=== PATIENT | male | born 1970 | race Caucasian/White ===

== ENCOUNTER 2016-09-13 11:10 | Inpatient (IN) | payer MEDICARE, MEDICAID ==
[~2016-09-13] VITALS: Ht 170.2 cm; Wt 59.2 kg
[~2016-09-13 11:10] MED LIST: BENZ1TAB10 PO; CLOZ100T PO; DIVA250T4 PO; FLUD25I IM; LITH300C3 PO; METO-323 PO; QUET25TA PO; TIOT185 IH
[2016-09-13] MEDS ORDERED: ZOLPIDEM TARTRATE 10 MG TABLET PO PRN (11:30)
[2016-09-13 11:52] VITALS: BP 109/79
[2016-09-13] MEDS ORDERED: INFLUENZA VIRUS VACCINE QVS 2016-17 (3YR+)/PF 60 MCG/0.5 ML SYRINGE IM ONE (12:30)
[2016-09-13 13:39] VITALS: BP 101/66
[2016-09-13 16:30] VITALS: BP 112/71
[2016-09-13] MEDS: BENZTROPINE MESYLATE 1 MG TABLET PO SCH (17:53)
[2016-09-13] MEDS: METOPROLOL SUCCINATE 25 MG ER TABLET PO SCH (17:53)
[2016-09-13] MEDS: QUEtiapine FUMARATE 25 MG TABLET PO SCH (17:53)
[2016-09-13] MEDS: DIVALPROEX SODIUM 500 MG ER TABLET PO SCH (21:14)
[2016-09-13] MEDS: LITHIUM CARBONATE 300 MG CAPSULE PO SCH (21:14)
[2016-09-14 02:19] VITALS: BP 115/64
[2016-09-14] MEDS: LEVOTHYROXINE SODIUM 25 MCG TABLET PO SCH (06:23)
[2016-09-14 08:33] LABS: BASOPHILS % (AUTO) 0.3 % (0.0-2.0); EOSINOPHILS % (AUTO) 0 % (1.0-6.0); HEMATOCRIT 47.3 % (41-53); HEMOGLOBIN 15.3 g/dL (13.5-17.5); LYMPHOCYTES # (AUTO) 1.5 K/uL (1.0-4.8); LYMPHOCYTES % (AUTO) 10.7 % (22.0-44.0); MEAN CORPUSCULAR HEMOGLOBIN 27.2 pg (26.0-34.0); MEAN CORPUSCULAR HGB CONC 32.3 G/dL (31.0-37.0); MEAN CORPUSCULAR VOLUME 84 fL (80-100); MONOCYTES # (AUTO) 0.8 K/uL (0.1-1.0); MONOCYTES % (AUTO) 6.1 % (2.0-9.0); NEUTROPHILS # (AUTO) 11.3 K/uL (1.8-7.7); NEUTROPHILS % (AUTO) 82.9 % (40.0-70.0); PLATELET COUNT (AUTO) 213 K/uL (150-450); RED BLOOD CELL COUNT(AUTO) 5.62 MIL/uL (4.50-5.90); RED CELL DISTRIBUTION WIDTH 14.1 % (11.5-14.5); WHITE BLOOD COUNT (AUTO) 13.7 K/uL (4.5-11.0)
[2016-09-14 08:49] VITALS: BP 104/65
[2016-09-14] MEDS: QUEtiapine FUMARATE 25 MG TABLET PO SCH ×3 (08:55→16:40)
[2016-09-14] MEDS: METOPROLOL SUCCINATE 25 MG ER TABLET PO SCH ×2 (08:55→16:40)
[2016-09-14] MEDS: BENZTROPINE MESYLATE 1 MG TABLET PO SCH ×2 (08:55→16:40)
[2016-09-14] MEDS: LORazepam 2 MG TABLET PO PRN (13:30)
[2016-09-14 16:00] VITALS: BP 120/64
[2016-09-14] MEDS: LITHIUM CARBONATE 300 MG CAPSULE PO SCH (20:17)
[2016-09-14] MEDS: CloZAPine 100 MG TABLET PO SCH (20:17)
[2016-09-14] MEDS: DIVALPROEX SODIUM 500 MG ER TABLET PO SCH (20:18)
[2016-09-15] MEDS: LEVOTHYROXINE SODIUM 25 MCG TABLET PO SCH (06:14)
[2016-09-15 06:29] VITALS: BP 123/73
[2016-09-15 08:47] VITALS: BP 120/82
[2016-09-15] MEDS: LORazepam 2 MG TABLET PO PRN ×3 (08:59→18:24)
[2016-09-15] MEDS: QUEtiapine FUMARATE 25 MG TABLET PO SCH ×3 (08:59→16:16)
[2016-09-15] MEDS: BENZTROPINE MESYLATE 1 MG TABLET PO SCH ×2 (08:59→16:16)
[2016-09-15] MEDS: METOPROLOL SUCCINATE 25 MG ER TABLET PO SCH ×2 (09:00→16:16)
[2016-09-15 09:36] LABS: BASOPHILS % (AUTO) 0.2 % (0.0-2.0); EOSINOPHILS % (AUTO) 0 % (1.0-6.0); HEMATOCRIT 45.1 % (41-53); HEMOGLOBIN 14.6 g/dL (13.5-17.5); LYMPHOCYTES % (AUTO) 9.9 % (22.0-44.0); MEAN CORPUSCULAR HEMOGLOBIN 27.2 pg (26.0-34.0); MEAN CORPUSCULAR HGB CONC 32.4 G/dL (31.0-37.0); MEAN CORPUSCULAR VOLUME 84 fL (80-100); MONOCYTES # (AUTO) 0.5 K/uL (0.1-1.0); MONOCYTES % (AUTO) 4.9 % (2.0-9.0); NEUTROPHILS # (AUTO) 8.5 K/uL (1.8-7.7); PLATELET COUNT (AUTO) 154 K/uL (150-450); RED BLOOD CELL COUNT(AUTO) 5.37 MIL/uL (4.50-5.90); RED CELL DISTRIBUTION WIDTH 14.3 % (11.5-14.5)
[2016-09-15 10:55] LABS: HEMOGLOBIN A1C 5.6 % (4.5-6.2)
[2016-09-15 11:06] LABS: ALANINE AMINOTRANSFERASE 16 U/L (12-78); ALBUMIN 3.1 g/dL (3.4-5.0); ANION GAP 8 mmol/L (8-16); ASPARTATE AMINOTRANSFERASE 13 U/L (15-37); BILIRUBIN,TOTAL 0.4 mg/dL (0.1-1.0); CALCIUM, TOTAL 9.1 mg/dL (8.8-10.5); CARBON DIOXIDE 31 mmol/L (22-29); CHLORIDE 102 mmol/L (98-107); CHOL/HDL RATIO 2.6 (4.2-7.3); CREATINE KINASE, TOTAL 70 U/L (39-308); CREATININE 0.78 mg/dL (0.60-1.30); GLOMERULAR FILTR. RATE CALC > 60 mL/min (>60); SODIUM SERUM 141 mmol/L (136-145); TOTAL PROTEIN, SERUM 6.7 g/dL (6.4-8.2); UREA NITROGEN, BLOOD 13 mg/dL (7-18)
[2016-09-15 11:30] LABS: THYROID STIMULATING HORMONE 2.52 uIU/mL (0.36-3.74)
[2016-09-15 17:56] VITALS: BP 114/72
[2016-09-15] MEDS: CloZAPine 100 MG TABLET PO SCH (20:24)
[2016-09-15] MEDS: LITHIUM CARBONATE 300 MG CAPSULE PO SCH (20:25)
[2016-09-15] MEDS: DIVALPROEX SODIUM 500 MG ER TABLET PO SCH (20:25)
[2016-09-16 01:40] VITALS: BP 133/73
[2016-09-16] MEDS: LORazepam 2 MG TABLET PO PRN (01:52)
[2016-09-16] MEDS: LEVOTHYROXINE SODIUM 25 MCG TABLET PO SCH (05:53)
[2016-09-16] MEDS: METOPROLOL SUCCINATE 25 MG ER TABLET PO SCH ×2 (09:00→16:19)
[2016-09-16] MEDS: QUEtiapine FUMARATE 25 MG TABLET PO SCH ×3 (09:17→16:18)
[2016-09-16] MEDS: BENZTROPINE MESYLATE 1 MG TABLET PO SCH ×2 (09:17→16:18)
[2016-09-16] MEDS: DIVALPROEX SODIUM 500 MG ER TABLET PO SCH (20:29)
[2016-09-16] MEDS: LITHIUM CARBONATE 300 MG CAPSULE PO SCH (20:29)
[2016-09-16] MEDS: CloZAPine 100 MG TABLET PO SCH (20:29)
[2016-09-17 04:13] LABS: HEPATITIS Bs ANTIGEN SCREEN P Negative (Negative); HEPATITIS C AB SCREEN <0.1 s/co ratio (0.0-0.9)
[2016-09-17] MEDS: LEVOTHYROXINE SODIUM 25 MCG TABLET PO SCH (06:56)
[2016-09-17 08:19] VITALS: BP 135/75
[2016-09-17 08:19] LABS: EOSINOPHILS % (AUTO) 0 % (1.0-6.0); HEMATOCRIT 46.3 % (41-53); HEMOGLOBIN 14.9 g/dL (13.5-17.5); LYMPHOCYTES # (AUTO) 0.8 K/uL (1.0-4.8); LYMPHOCYTES % (AUTO) 4.4 % (22.0-44.0); MEAN CORPUSCULAR HEMOGLOBIN 27.1 pg (26.0-34.0); MEAN CORPUSCULAR HGB CONC 32.2 G/dL (31.0-37.0); MEAN CORPUSCULAR VOLUME 84 fL (80-100); MONOCYTES # (AUTO) 1.5 K/uL (0.1-1.0); MONOCYTES % (AUTO) 7.8 % (2.0-9.0); NEUTROPHILS # (AUTO) 16.4 K/uL (1.8-7.7); PLATELET COUNT (AUTO) 167 K/uL (150-450); RED BLOOD CELL COUNT(AUTO) 5.51 MIL/uL (4.50-5.90); RED CELL DISTRIBUTION WIDTH 14.3 % (11.5-14.5); WHITE BLOOD COUNT (AUTO) 18.7 K/uL (4.5-11.0)
[2016-09-17 08:20] LABS: NEUTROPHILS % (AUTO) 87.8 % (40.0-70.0)
[2016-09-17] MEDS: QUEtiapine FUMARATE 25 MG TABLET PO SCH ×3 (08:39→16:59)
[2016-09-17] MEDS: BENZTROPINE MESYLATE 1 MG TABLET PO SCH ×2 (08:39→16:59)
[2016-09-17] MEDS: METOPROLOL SUCCINATE 25 MG ER TABLET PO SCH ×2 (08:39→16:59)
[2016-09-17 08:50] LABS: ALANINE AMINOTRANSFERASE 16 U/L (12-78); ALBUMIN 3.5 g/dL (3.4-5.0); ANION GAP 8 mmol/L (8-16); ASPARTATE AMINOTRANSFERASE 7 U/L (15-37); BILIRUBIN,TOTAL 0.4 mg/dL (0.1-1.0); CALCIUM, TOTAL 8.9 mg/dL (8.8-10.5); CARBON DIOXIDE 30 mmol/L (22-29); CHLORIDE 105 mmol/L (98-107); CREATINE KINASE, TOTAL 47 U/L (39-308); CREATININE 0.71 mg/dL (0.60-1.30); GLOMERULAR FILTR. RATE CALC > 60 mL/min (>60); POTASSIUM 4.6 mmol/L (3.5-5.1); SODIUM SERUM 143 mmol/L (136-145); TOTAL PROTEIN, SERUM 6.7 g/dL (6.4-8.2); UREA NITROGEN, BLOOD 13 mg/dL (7-18)
[2016-09-17] MEDS: LACTULOSE 20 GM/30 ML SOLUTION UDCUP PO SCH (09:26)
[2016-09-17 12:04] LABS: CLOZAPINE None Detected ng/mL (350-650); NORCLOZAPINE None Detected (Not Estab.)
[2016-09-17 16:54] VITALS: BP 119/78
[2016-09-17] MEDS: DIVALPROEX SODIUM 500 MG ER TABLET PO SCH (20:29)
[2016-09-17] MEDS: LITHIUM CARBONATE 300 MG CAPSULE PO SCH (20:30)
[2016-09-17] MEDS: CloZAPine 100 MG TABLET PO SCH (20:30)
[2016-09-18] MEDS: LEVOTHYROXINE SODIUM 25 MCG TABLET PO SCH (06:36)
[2016-09-18 07:10] VITALS: BP 124/81
[2016-09-18 08:47] VITALS: BP 112/65
[2016-09-18] MEDS: LACTULOSE 20 GM/30 ML SOLUTION UDCUP PO SCH (09:21)
[2016-09-18] MEDS: BENZTROPINE MESYLATE 1 MG TABLET PO SCH ×2 (09:22→17:23)
[2016-09-18] MEDS: METOPROLOL SUCCINATE 25 MG ER TABLET PO SCH ×2 (09:22→17:30)
[2016-09-18] MEDS: QUEtiapine FUMARATE 25 MG TABLET PO SCH ×3 (09:22→17:23)
[2016-09-18 16:29] VITALS: BP 106/73
[2016-09-18 17:30] VITALS: BP 124/80
[2016-09-18] MEDS: CloZAPine 100 MG TABLET PO SCH (20:14)
[2016-09-18] MEDS: LITHIUM CARBONATE 300 MG CAPSULE PO SCH (20:15)
[2016-09-18] MEDS: DIVALPROEX SODIUM 500 MG ER TABLET PO SCH (20:15)
[2016-09-19] MEDS: LEVOTHYROXINE SODIUM 25 MCG TABLET PO SCH (06:35)
[2016-09-19 08:27] LABS: BASOPHILS % (AUTO) 0.1 % (0.0-2.0); EOSINOPHILS % (AUTO) 0 % (1.0-6.0); HEMATOCRIT 48.7 % (41-53); HEMOGLOBIN 15.8 g/dL (13.5-17.5); LYMPHOCYTES # (AUTO) 0.9 K/uL (1.0-4.8); LYMPHOCYTES % (AUTO) 5.5 % (22.0-44.0); MEAN CORPUSCULAR HGB CONC 32.6 G/dL (31.0-37.0); MEAN CORPUSCULAR VOLUME 83 fL (80-100); MONOCYTES # (AUTO) 1.8 K/uL (0.1-1.0); MONOCYTES % (AUTO) 10.7 % (2.0-9.0); NEUTROPHILS # (AUTO) 14.4 K/uL (1.8-7.7); NEUTROPHILS % (AUTO) 83.7 % (40.0-70.0); PLATELET COUNT (AUTO) 139 K/uL (150-450); RED BLOOD CELL COUNT(AUTO) 5.86 MIL/uL (4.50-5.90); RED CELL DISTRIBUTION WIDTH 13.9 % (11.5-14.5); WHITE BLOOD COUNT (AUTO) 17.2 K/uL (4.5-11.0)
[2016-09-19 08:42] LABS: CREATINE KINASE, TOTAL 40 U/L (39-308); VALPROIC ACID 69 mcg/mL (50-100)
[2016-09-19] MEDS: QUEtiapine FUMARATE 25 MG TABLET PO SCH ×3 (08:50→16:29)
[2016-09-19] MEDS: METOPROLOL SUCCINATE 25 MG ER TABLET PO SCH ×2 (08:50→16:29)
[2016-09-19] MEDS: LACTULOSE 20 GM/30 ML SOLUTION UDCUP PO SCH (08:50)
[2016-09-19] MEDS: BENZTROPINE MESYLATE 1 MG TABLET PO SCH ×2 (08:50→16:29)
[2016-09-19 16:10] VITALS: BP 126/78
[2016-09-19] MEDS: CloZAPine 100 MG TABLET PO SCH (20:36)
[2016-09-19] MEDS: DIVALPROEX SODIUM 500 MG ER TABLET PO SCH (20:37)
[2016-09-19] MEDS: LITHIUM CARBONATE 300 MG CAPSULE PO SCH (20:37)
[2016-09-20] VITALS: BP 126/96
[2016-09-20] MEDS: LEVOTHYROXINE SODIUM 25 MCG TABLET PO SCH (07:09)
[2016-09-20 08:08] VITALS: BP 137/82
[2016-09-20] MEDS ORDERED: LEVO25TA9 PO (08:11)
[2016-09-20] MEDS ORDERED: DIVA500T52 PO (08:11)
[2016-09-20] MEDS: METOPROLOL SUCCINATE 25 MG ER TABLET PO SCH (08:53)
[2016-09-20] MEDS: BENZTROPINE MESYLATE 1 MG TABLET PO SCH (08:53)
[2016-09-20] MEDS: QUEtiapine FUMARATE 25 MG TABLET PO SCH (08:54)
[2016-09-20] MEDS: LACTULOSE 20 GM/30 ML SOLUTION UDCUP PO SCH (08:54)
[2016-09-27] MEDS ORDERED: FluPHENAZine DECANOATE 25 MG/ML IM SCH (09:00)
== END 2016-09-20 10:00 | disposition home or self-care (01) | DRG 885 ==
LOC: B2S 11:20 → EDSTATUS 11:39 → B2S 13:13
PROC: 3E0234Z Introduction of Serum, Toxoid and Vaccine into Muscle, Percutaneous Approach (ICD-10-PCS; principal; 2016-09-14)
DX: F25.0 Schizoaffective disorder, bipolar type (principal); G93.40 Encephalopathy, unspecified; E83.42 Hypomagnesemia; E55.9 Vitamin D deficiency, unspecified; E03.9 Hypothyroidism, unspecified; I10 Essential (primary) hypertension; D69.6 Thrombocytopenia, unspecified; J44.9 Chronic obstructive pulmonary disease, unspecified; D72.829 Elevated white blood cell count, unspecified; K72.90 Hepatic failure, unspecified without coma; Z88.8 Allergy status to other drugs, medicaments and biological substances; Z23 Encounter for immunization; Z79.899 Other long term (current) drug therapy; Z91.5 Personal history of self-harm
CPT/HCPCS: 80074; 80159; 82306; 82607; 82746; 83036; 83735; 84439; 84443; 86592; 90471

== ENCOUNTER 2016-10-22 16:10 | Inpatient (IN) | payer MEDICARE, MEDICAID ==
[~2016-10-22] VITALS: Ht 170.2 cm; Wt 56.2 kg
[~2016-10-22 16:10] MED LIST changes: -DIVA250T4 PO; +DIVA500T52 PO; -FLUD25I IM; +LEVO25TA9 PO; -TIOT185 IH
[2016-10-22] MEDS ORDERED: LORazepam 2 MG TABLET PO PRN (16:45)
[2016-10-22] MEDS: QUEtiapine FUMARATE 25 MG TABLET PO SCH (18:09)
[2016-10-22] MEDS: METOPROLOL SUCCINATE 25 MG ER TABLET PO SCH (18:09)
[2016-10-22 18:32] VITALS: BP 121/75
[2016-10-22] MEDS: DIVALPROEX SODIUM 500 MG ER TABLET PO SCH (20:37)
[2016-10-22] MEDS: LITHIUM CARBONATE 300 MG CAPSULE PO SCH (20:37)
[2016-10-22] MEDS: BENZTROPINE MESYLATE 1 MG TABLET PO SCH (20:37)
[2016-10-22] MEDS ORDERED: CloZAPine 100 MG TABLET PO SCH ×2 (21:00)
[2016-10-23 00:39] VITALS: BP 107/68
[2016-10-23] MEDS: ZOLPIDEM TARTRATE 10 MG TABLET PO PRN (00:47)
[2016-10-23 08:44] LABS: BASOPHILS % (AUTO) 0.2 % (0.0-2.0); EOSINOPHILS % (AUTO) 0 % (1.0-6.0); HEMOGLOBIN 12.1 g/dL (13.5-17.5); LYMPHOCYTES # (AUTO) 0.4 K/uL (1.0-4.8); LYMPHOCYTES % (AUTO) 14.7 % (22.0-44.0); MEAN CORPUSCULAR HEMOGLOBIN 26.5 pg (26.0-34.0); MEAN CORPUSCULAR VOLUME 83 fL (80-100); MONOCYTES # (AUTO) 0.4 K/uL (0.1-1.0); MONOCYTES % (AUTO) 15.8 % (2.0-9.0); NEUTROPHILS % (AUTO) 69.3 % (40.0-70.0); RED BLOOD CELL COUNT(AUTO) 4.59 MIL/uL (4.50-5.90); RED CELL DISTRIBUTION WIDTH 18.9 % (11.5-14.5); WHITE BLOOD COUNT (AUTO) 2.8 K/uL (4.5-11.0)
[2016-10-23 08:57] LABS: HEMOGLOBIN A1C 5.8 % (4.5-6.2)
[2016-10-23 09:00] VITALS: BP 94/59
[2016-10-23] MEDS: METOPROLOL SUCCINATE 25 MG ER TABLET PO SCH ×2 (09:00→17:00)
[2016-10-23] MEDS: QUEtiapine FUMARATE 25 MG TABLET PO SCH ×4 (09:08→17:05)
[2016-10-23] MEDS: BENZTROPINE MESYLATE 1 MG TABLET PO SCH ×2 (09:09→20:54)
[2016-10-23 09:27] LABS: ALANINE AMINOTRANSFERASE 229 U/L (12-78); ALBUMIN 1.7 g/dL (3.4-5.0); ANION GAP 2 mmol/L (8-16); ASPARTATE AMINOTRANSFERASE 104 U/L (15-37); CALCIUM, TOTAL 8.1 mg/dL (8.8-10.5); CARBON DIOXIDE 31 mmol/L (22-29); CHLORIDE 105 mmol/L (98-107); CREATININE 0.85 mg/dL (0.60-1.30); GLOMERULAR FILTR. RATE CALC > 60 mL/min (>60); SODIUM SERUM 138 mmol/L (136-145); THYROID STIMULATING HORMONE 10.99 uIU/mL (0.36-3.74); TOTAL PROTEIN, SERUM 6.6 g/dL (6.4-8.2); UREA NITROGEN, BLOOD 15 mg/dL (7-18)
[2016-10-23 09:46] LABS: PLATELET COUNT (AUTO) 50 K/uL (150-450)
[2016-10-23 09:47] LABS: RBC MORPHOLOGY COMMENT NORMAL RBC MORPH
[2016-10-23] MEDS: LEVOTHYROXINE SODIUM 25 MCG TABLET PO SCH (14:50)
[2016-10-23 16:02] VITALS: BP 106/66
[2016-10-23] MEDS: LITHIUM CARBONATE 300 MG CAPSULE PO SCH (20:53)
[2016-10-23] MEDS: DIVALPROEX SODIUM 500 MG ER TABLET PO SCH (20:54)
[2016-10-23] MEDS: CloZAPine 100 MG TABLET PO SCH (21:08)
[2016-10-24 00:15] VITALS: BP 110/67
[2016-10-24] MEDS: ZOLPIDEM TARTRATE 10 MG TABLET PO PRN (00:16)
[2016-10-24] MEDS: LEVOTHYROXINE SODIUM 25 MCG TABLET PO SCH (06:43)
[2016-10-24 08:18] LABS: BASOPHILS # (AUTO) 0.01 K/uL (0.00-0.20); BASOPHILS % (AUTO) 0.2 % (0.0-2.0); EOSINOPHILS % (AUTO) 0.03 % (1.0-6.0); HEMATOCRIT 39.8 % (41-53); HEMOGLOBIN 12.7 g/dL (13.5-17.5); LYMPHOCYTES # (AUTO) 0.4 K/uL (1.0-4.8); LYMPHOCYTES % (AUTO) 11.7 % (22.0-44.0); MEAN CORPUSCULAR HEMOGLOBIN 26.7 pg (26.0-34.0); MEAN CORPUSCULAR VOLUME 84 fL (80-100); MONOCYTES # (AUTO) 0.4 K/uL (0.1-1.0); NEUTROPHILS # (AUTO) 2.3 K/uL (1.8-7.7); NEUTROPHILS % (AUTO) 75.1 % (40.0-70.0); PLATELET COUNT (AUTO) 44 K/uL (150-450); RED BLOOD CELL COUNT(AUTO) 4.76 MIL/uL (4.50-5.90); RED CELL DISTRIBUTION WIDTH 19.7 % (11.5-14.5); WHITE BLOOD COUNT (AUTO) 3.1 K/uL (4.5-11.0)
[2016-10-24 08:26] VITALS: BP 102/68
[2016-10-24] MEDS: METOPROLOL SUCCINATE 25 MG ER TABLET PO SCH ×2 (09:00→17:00)
[2016-10-24] MEDS: QUEtiapine FUMARATE 25 MG TABLET PO SCH ×3 (09:34→17:06)
[2016-10-24] MEDS: BENZTROPINE MESYLATE 1 MG TABLET PO SCH ×2 (09:34→20:38)
[2016-10-24 10:24] LABS: RBC MORPHOLOGY COMMENT ABNORMAL RBC MORPH
[2016-10-24 16:23] VITALS: BP 104/67
[2016-10-24] MEDS: LITHIUM CARBONATE 300 MG CAPSULE PO SCH (20:38)
[2016-10-24] MEDS: DIVALPROEX SODIUM 500 MG ER TABLET PO SCH (20:38)
[2016-10-24] MEDS: CloZAPine 100 MG TABLET PO SCH (20:38)
[2016-10-25] MEDS: LEVOTHYROXINE SODIUM 25 MCG TABLET PO SCH (06:11)
[2016-10-25 06:40] VITALS: BP 104/60
[2016-10-25 08:16] VITALS: BP 101/62
[2016-10-25] MEDS: METOPROLOL SUCCINATE 25 MG ER TABLET PO SCH ×2 (09:00→16:46)
[2016-10-25] MEDS: BENZTROPINE MESYLATE 1 MG TABLET PO SCH ×2 (09:11→20:18)
[2016-10-25] MEDS: QUEtiapine FUMARATE 25 MG TABLET PO SCH ×3 (09:11→16:45)
[2016-10-25 16:01] VITALS: BP 102/62
[2016-10-25 19:35] VITALS: BP 119/56
[2016-10-25] MEDS: CloZAPine 100 MG TABLET PO SCH (20:18)
[2016-10-25] MEDS: DIVALPROEX SODIUM 500 MG ER TABLET PO SCH (20:18)
[2016-10-25] MEDS: LITHIUM CARBONATE 300 MG CAPSULE PO SCH (20:23)
[2016-10-26] MEDS: LEVOTHYROXINE SODIUM 25 MCG TABLET PO SCH (06:17)
[2016-10-26] MEDS: METOPROLOL SUCCINATE 25 MG ER TABLET PO SCH ×2 (08:01→17:00)
[2016-10-26] MEDS: QUEtiapine FUMARATE 25 MG TABLET PO SCH ×3 (08:02→17:43)
[2016-10-26] MEDS: BENZTROPINE MESYLATE 1 MG TABLET PO SCH ×2 (08:03→20:25)
[2016-10-26 08:19] VITALS: BP 103/63
[2016-10-26] MEDS ORDERED: IOVERSOL 320 MG/ML 100 ML VIAL ONE (14:15)
[2016-10-26] MEDS ORDERED: SODIUM CHLORIDE 0.9% 100 ML ONE (14:15)
[2016-10-26] MEDS ORDERED: BARIUM SULFATE 0.1% SUSPENSION 450 ML BOTTLE ONE (14:16)
[2016-10-26 15:40] LABS: ALANINE AMINOTRANSFERASE 127 U/L (12-78); ALBUMIN 1.7 g/dL (3.4-5.0); ANION GAP 3 mmol/L (8-16); ASPARTATE AMINOTRANSFERASE 79 U/L (15-37); BILIRUBIN,TOTAL 7.6 mg/dL (0.1-1.0); CALCIUM, TOTAL 7.8 mg/dL (8.8-10.5); CARBON DIOXIDE 30 mmol/L (22-29); CHLORIDE 105 mmol/L (98-107); CREATININE 0.68 mg/dL (0.60-1.30); GLOMERULAR FILTR. RATE CALC > 60 mL/min (>60); POTASSIUM 4.5 mmol/L (3.5-5.1); SODIUM SERUM 138 mmol/L (136-145); TOTAL PROTEIN, SERUM 6.9 g/dL (6.4-8.2); UREA NITROGEN, BLOOD 13 mg/dL (7-18)
[2016-10-26 17:26] VITALS: BP 109/69
[2016-10-26] MEDS: DIVALPROEX SODIUM 500 MG ER TABLET PO SCH (20:25)
[2016-10-26] MEDS: CloZAPine 100 MG TABLET PO SCH (20:25)
[2016-10-26] MEDS: LITHIUM CARBONATE 300 MG CAPSULE PO SCH (20:26)
[2016-10-27 02:09] LABS: ADD UA MICROSCOPIC NO; APPEARANCE,URINE CLEAR (CLEAR); GLUCOSE, URINE (UA) NEGATIVE (NEGATIVE); KETONES,URINE NEGATIVE (NEGATIVE); LEUKOCYTE ESTERASE ,URINE NEGATIVE (NEGATIVE); OCCULT BLOOD,URINE NEGATIVE (NEGATIVE); PROTEIN,URINE NEGATIVE (NEGATIVE)
[2016-10-27] MEDS: LEVOTHYROXINE SODIUM 25 MCG TABLET PO SCH (06:40)
[2016-10-27 08:20] VITALS: BP 113/73
[2016-10-27] MEDS: QUEtiapine FUMARATE 25 MG TABLET PO SCH ×3 (08:37→16:46)
[2016-10-27] MEDS: BENZTROPINE MESYLATE 1 MG TABLET PO SCH ×2 (08:37→21:36)
[2016-10-27] MEDS: METOPROLOL SUCCINATE 25 MG ER TABLET PO SCH ×2 (08:38→16:46)
[2016-10-27 13:02] LABS: ALANINE AMINOTRANSFERASE 110 U/L (12-78); ALBUMIN 1.9 g/dL (3.4-5.0); ANION GAP 3 mmol/L (8-16); ASPARTATE AMINOTRANSFERASE 83 U/L (15-37); BILIRUBIN,TOTAL 7.4 mg/dL (0.1-1.0); CALCIUM, TOTAL 8.2 mg/dL (8.8-10.5); CARBON DIOXIDE 31 mmol/L (22-29); CHLORIDE 103 mmol/L (98-107); CREATININE 0.96 mg/dL (0.60-1.30); GLOMERULAR FILTR. RATE CALC > 60 mL/min (>60); POTASSIUM 4.8 mmol/L (3.5-5.1); SODIUM SERUM 137 mmol/L (136-145); TOTAL PROTEIN, SERUM 7.1 g/dL (6.4-8.2); UREA NITROGEN, BLOOD 14 mg/dL (7-18)
[2016-10-27 17:00] VITALS: BP 126/75
[2016-10-27] MEDS: CloZAPine 100 MG TABLET PO SCH (21:35)
[2016-10-27] MEDS: LITHIUM CARBONATE 300 MG CAPSULE PO SCH (21:36)
[2016-10-27] MEDS: DIVALPROEX SODIUM 500 MG ER TABLET PO SCH (21:38)
[2016-10-28] MEDS: LEVOTHYROXINE SODIUM 25 MCG TABLET PO SCH (06:39)
[2016-10-28 08:00] VITALS: BP 103/65
[2016-10-28] MEDS: QUEtiapine FUMARATE 25 MG TABLET PO SCH ×3 (08:34→17:04)
[2016-10-28] MEDS: BENZTROPINE MESYLATE 1 MG TABLET PO SCH ×2 (08:34→21:52)
[2016-10-28] MEDS: METOPROLOL SUCCINATE 25 MG ER TABLET PO SCH ×2 (08:35→17:04)
[2016-10-28 16:46] VITALS: BP 109/70
[2016-10-28 21:01] LABS: LITHIUM 0.43 mmol/L (0.60-1.20)
[2016-10-28] MEDS: LITHIUM CARBONATE 300 MG CAPSULE PO SCH (21:52)
[2016-10-28] MEDS: CloZAPine 100 MG TABLET PO SCH (21:52)
[2016-10-28] MEDS: DIVALPROEX SODIUM 500 MG ER TABLET PO SCH (21:53)
[2016-10-29] MEDS: LEVOTHYROXINE SODIUM 25 MCG TABLET PO SCH (07:02)
[2016-10-29 08:00] VITALS: BP 100/67
[2016-10-29 08:19] LABS: HEPATITIS Bs ANTIGEN SCREEN P Negative (Negative); HEPATITIS C AB SCREEN <0.1 s/co ratio (0.0-0.9)
[2016-10-29] MEDS: QUEtiapine FUMARATE 25 MG TABLET PO SCH ×3 (10:00→16:31)
[2016-10-29] MEDS: METOPROLOL SUCCINATE 25 MG ER TABLET PO SCH ×2 (10:00→16:31)
[2016-10-29] MEDS: BENZTROPINE MESYLATE 1 MG TABLET PO SCH ×2 (10:00→20:04)
[2016-10-29 16:23] VITALS: BP 121/75
[2016-10-29] MEDS: CloZAPine 100 MG TABLET PO SCH (20:04)
[2016-10-29] MEDS: DIVALPROEX SODIUM 500 MG ER TABLET PO SCH (20:04)
[2016-10-29] MEDS: LITHIUM CARBONATE 300 MG CAPSULE PO SCH (20:04)
[2016-10-30] MEDS: LEVOTHYROXINE SODIUM 25 MCG TABLET PO SCH (06:40)
[2016-10-30] MEDS: QUEtiapine FUMARATE 25 MG TABLET PO SCH ×3 (08:07→16:19)
[2016-10-30] MEDS: BENZTROPINE MESYLATE 1 MG TABLET PO SCH ×2 (08:07→20:04)
[2016-10-30] MEDS: METOPROLOL SUCCINATE 25 MG ER TABLET PO SCH ×2 (08:08→16:19)
[2016-10-30 09:25] VITALS: BP 110/76
[2016-10-30 17:00] VITALS: BP 107/79
[2016-10-30 17:51] LABS: ALANINE AMINOTRANSFERASE 93 U/L (12-78); ANION GAP 4 mmol/L (8-16); ASPARTATE AMINOTRANSFERASE 101 U/L (15-37); CALCIUM, TOTAL 8.3 mg/dL (8.8-10.5); CARBON DIOXIDE 30 mmol/L (22-29); CHLORIDE 105 mmol/L (98-107); CREATININE 0.83 mg/dL (0.60-1.30); GLOMERULAR FILTR. RATE CALC > 60 mL/min (>60); POTASSIUM 4.5 mmol/L (3.5-5.1); SODIUM SERUM 139 mmol/L (136-145); TOTAL PROTEIN, SERUM 7.5 g/dL (6.4-8.2); UREA NITROGEN, BLOOD 19 mg/dL (7-18)
[2016-10-30] MEDS: DIVALPROEX SODIUM 500 MG ER TABLET PO SCH (20:04)
[2016-10-30] MEDS: LITHIUM CARBONATE 300 MG CAPSULE PO SCH (20:04)
[2016-10-30] MEDS: CloZAPine 100 MG TABLET PO SCH (20:04)
[2016-10-31] MEDS: LEVOTHYROXINE SODIUM 25 MCG TABLET PO SCH (07:06)
[2016-10-31] MEDS: METOPROLOL SUCCINATE 25 MG ER TABLET PO SCH ×2 (08:44→17:37)
[2016-10-31] MEDS: QUEtiapine FUMARATE 25 MG TABLET PO SCH ×3 (08:44→16:48)
[2016-10-31] MEDS: BENZTROPINE MESYLATE 1 MG TABLET PO SCH ×2 (08:44→20:38)
[2016-10-31 09:28] VITALS: BP 107/79
[2016-10-31 17:19] VITALS: BP_SYST 104; BP_SYST 109; BP_DIAS 73
[2016-10-31] MEDS: CloZAPine 100 MG TABLET PO SCH (20:37)
[2016-10-31] MEDS: DIVALPROEX SODIUM 500 MG ER TABLET PO SCH (20:37)
[2016-10-31] MEDS: LITHIUM CARBONATE 300 MG CAPSULE PO SCH (20:38)
[2016-11-01] MEDS: LEVOTHYROXINE SODIUM 25 MCG TABLET PO SCH (06:51)
[2016-11-01 07:07] LABS: HEMATOCRIT 32.3 % (41-53); HEMOGLOBIN 10.4 g/dL (13.5-17.5); MEAN CORPUSCULAR HEMOGLOBIN 27.5 pg (26.0-34.0); MEAN CORPUSCULAR HGB CONC 32.1 G/dL (31.0-37.0); MEAN CORPUSCULAR VOLUME 86 fL (80-100); RED BLOOD CELL COUNT(AUTO) 3.77 MIL/uL (4.50-5.90); RED CELL DISTRIBUTION WIDTH 27.4 % (11.5-14.5); WHITE BLOOD COUNT (AUTO) 3.3 K/uL (4.5-11.0)
[2016-11-01] MEDS: BENZTROPINE MESYLATE 1 MG TABLET PO SCH ×2 (08:39→20:55)
[2016-11-01] MEDS: METOPROLOL SUCCINATE 25 MG ER TABLET PO SCH ×2 (08:39→17:00)
[2016-11-01] MEDS: QUEtiapine FUMARATE 25 MG TABLET PO SCH ×3 (08:41→16:33)
[2016-11-01 08:57] LABS: PLATELET COUNT (AUTO) 56 K/uL (150-450)
[2016-11-01 08:58] LABS: RBC MORPHOLOGY COMMENT ABNORMAL RBC MORPH
[2016-11-01 09:00] VITALS: BP 112/61
[2016-11-01 09:04] LABS: BAND NEUTROPHILS % (MANUAL) 3 % (1-5); LYMPHOCYTES % (MANUAL) 32 % (22-44); TOTAL CELLS COUNTED 100
[2016-11-01 17:00] VITALS: BP 101/64
[2016-11-01] MEDS: CloZAPine 100 MG TABLET PO SCH (20:53)
[2016-11-01] MEDS: LITHIUM CARBONATE 300 MG CAPSULE PO SCH (20:54)
[2016-11-01] MEDS: DIVALPROEX SODIUM 500 MG ER TABLET PO SCH (20:54)
[2016-11-02 06:20] VITALS: BP 105/77
[2016-11-02] MEDS: LEVOTHYROXINE SODIUM 25 MCG TABLET PO SCH (06:37)
[2016-11-02] MEDS: QUEtiapine FUMARATE 25 MG TABLET PO SCH ×3 (08:31→16:38)
[2016-11-02] MEDS: BENZTROPINE MESYLATE 1 MG TABLET PO SCH ×2 (08:31→20:09)
[2016-11-02] MEDS: METOPROLOL SUCCINATE 25 MG ER TABLET PO SCH ×2 (08:31→16:38)
[2016-11-02 16:36] VITALS: BP 111/76
[2016-11-02] MEDS: CloZAPine 100 MG TABLET PO SCH (20:09)
[2016-11-02] MEDS: LITHIUM CARBONATE 300 MG CAPSULE PO SCH (20:09)
[2016-11-02] MEDS: DIVALPROEX SODIUM 500 MG ER TABLET PO SCH (20:09)
[2016-11-03] MEDS: LEVOTHYROXINE SODIUM 25 MCG TABLET PO SCH (06:42)
[2016-11-03 06:43] VITALS: BP 116/75
[2016-11-03 08:30] VITALS: BP 92/60
[2016-11-03] MEDS: METOPROLOL SUCCINATE 25 MG ER TABLET PO SCH ×2 (09:00→16:10)
[2016-11-03] MEDS: BENZTROPINE MESYLATE 1 MG TABLET PO SCH ×2 (09:51→20:05)
[2016-11-03] MEDS: QUEtiapine FUMARATE 25 MG TABLET PO SCH ×4 (09:52→16:10)
[2016-11-03 16:08] VITALS: BP 110/76
[2016-11-03] MEDS: LITHIUM CARBONATE 300 MG CAPSULE PO SCH (20:05)
[2016-11-03] MEDS: CloZAPine 100 MG TABLET PO SCH (20:05)
[2016-11-03] MEDS: DIVALPROEX SODIUM 500 MG ER TABLET PO SCH (20:05)
[2016-11-04 01:35] VITALS: BP 106/73
[2016-11-04] MEDS: LEVOTHYROXINE SODIUM 25 MCG TABLET PO SCH (06:11)
[2016-11-04] MEDS: QUEtiapine FUMARATE 25 MG TABLET PO SCH (09:05)
[2016-11-04] MEDS: BENZTROPINE MESYLATE 1 MG TABLET PO SCH (09:05)
[2016-11-04] MEDS: METOPROLOL SUCCINATE 25 MG ER TABLET PO SCH (09:06)
[2016-11-04 09:44] VITALS: BP 112/51
== END 2016-11-04 14:40 | disposition home or self-care (01) | DRG 885 ==
LOC: B2X 16:38 → 3EX 10-25 19:35
DX: F25.0 Schizoaffective disorder, bipolar type (principal); R45.851 Suicidal ideations; E46 Unspecified protein-calorie malnutrition; B15.9 Hepatitis A without hepatic coma; Z68.1 Body mass index [BMI] 19.9 or less, adult; J44.9 Chronic obstructive pulmonary disease, unspecified; F12.90 Cannabis use, unspecified, uncomplicated; D64.9 Anemia, unspecified; R45.87 Impulsiveness; I10 Essential (primary) hypertension; Z91.5 Personal history of self-harm; Z88.8 Allergy status to other drugs, medicaments and biological substances; Z87.891 Personal history of nicotine dependence; Z79.899 Other long term (current) drug therapy; Z91.14 Patient's other noncompliance with medication regimen
CPT/HCPCS: 74177; 76700; 80074; 80307; 83036; 84439; 84443; 86708; 87350; J7050

== ENCOUNTER 2017-01-28 10:39 | Inpatient (IN) | payer MEDICARE, MEDICAID ==
[~2017-01-28] VITALS: Ht 170.2 cm; Wt 56.8 kg
[2017-01-28 11:50] VITALS: BP 110/73
[2017-01-28 13:09] VITALS: BP 107/69
[2017-01-28] MEDS: QUEtiapine FUMARATE 25 MG TABLET PO SCH ×2 (13:22→16:20)
[2017-01-28] MEDS ORDERED: -PHARMACY VACCINE NOTE- MISC ONE ×2 (13:45)
[2017-01-28] MEDS: METOPROLOL SUCCINATE 25 MG ER TABLET PO SCH (16:20)
[2017-01-28 16:21] VITALS: BP 115/86
[2017-01-28 19:05] VITALS: BP 138/88
[2017-01-28] MEDS ORDERED: MAG HYDROX/AL HYDROX/SIMETH ES 30 ML SUSPENSION UDCUP PO PRN (19:15)
[2017-01-28] MEDS ORDERED: ONDANSETRON HCL 4 MG TABLET PO PRN (19:15)
[2017-01-28] MEDS ORDERED: ALBUTEROL SULFATE HFA 90 MCG/PUFF 8 GM INHALER IH PRN (19:15)
[2017-01-28] MEDS ORDERED: IBUPROFEN 600 MG TABLET PO PRN (19:15)
[2017-01-28] MEDS ORDERED: BENZOCAINE/MENTHOL LOZENGE MM PRN (19:15)
[2017-01-28] MEDS ORDERED: BACITRACIN 28.4 GM OINTMENT TP PRN (19:15)
[2017-01-28] MEDS ORDERED: ACETAMINOPHEN 325 MG TABLET PO PRN (19:15)
[2017-01-28] MEDS ORDERED: PETROLATUM,WHITE 71 GM JELLY TP PRN (19:15)
[2017-01-28] MEDS ORDERED: CloNIDine HCL 0.1 MG TABLET PO PRN (19:15)
[2017-01-28] MEDS ORDERED: LOPERAMIDE HCL 2 MG CAPSULE PO PRN (19:15)
[2017-01-28] MEDS ORDERED: MAGNESIUM HYDROXIDE SUSPENSION 30 ML UDCUP PO PRN (19:15)
[2017-01-28 19:20] VITALS: BP 128/96
[2017-01-28] MEDS ORDERED: CloZAPine 100 MG TABLET PO SCH (21:00)
[2017-01-28] MEDS ORDERED: LITHIUM CARBONATE 300 MG CAPSULE PO SCH (21:00)
[2017-01-28] MEDS ORDERED: DIVALPROEX SODIUM 500 MG ER TABLET PO SCH (21:00)
[2017-01-28] MEDS: BENZTROPINE MESYLATE 1 MG TABLET PO SCH (21:00)
[2017-01-29] MEDS ORDERED: LEVOTHYROXINE SODIUM 25 MCG TABLET PO SCH (06:30)
[2017-01-29] MEDS ORDERED: OMEPRAZOLE 20 MG CAPSULE PO SCH (09:00)
[2017-01-29] MEDS: QUEtiapine FUMARATE 25 MG TABLET PO SCH ×2 (09:00→13:00)
[2017-01-29] MEDS ORDERED: DOCUSATE SODIUM 100 MG CAPSULE PO SCH (09:00)
[2017-01-29] MEDS: METOPROLOL SUCCINATE 25 MG ER TABLET PO SCH (09:00)
[2017-01-29] MEDS: BENZTROPINE MESYLATE 1 MG TABLET PO SCH (09:00)
[2017-01-29] MEDS ORDERED: CloZAPine 100 MG TABLET PO SCH (21:00)
[2017-01-30] MEDS ORDERED: CHOLECALCIFEROL (VIT D3) 1,000 UNITS TABLET PO SCH (09:00)
== END 2017-01-29 15:00 | disposition short-term general hospital (02) | DRG 885 ==
LOC: B2X 10:58
PROVIDERS: ADMIT Psychiatry & Neurology Child & Adolescent Psychiatry
DX: F25.0 Schizoaffective disorder, bipolar type (principal); J96.91 Respiratory failure, unspecified with hypoxia; B15.9 Hepatitis A without hepatic coma; I10 Essential (primary) hypertension; F17.200 Nicotine dependence, unspecified, uncomplicated; J44.9 Chronic obstructive pulmonary disease, unspecified; D64.9 Anemia, unspecified; E03.9 Hypothyroidism, unspecified; E55.9 Vitamin D deficiency, unspecified; Z79.2 Long term (current) use of antibiotics; Z88.8 Allergy status to other drugs, medicaments and biological substances; Z91.5 Personal history of self-harm; Z79.899 Other long term (current) drug therapy
CPT/HCPCS: 87081

== ENCOUNTER 2017-02-19 21:01 | Inpatient (IN) | payer MEDICARE, OTHER ==
[~2017-02-19] VITALS: Ht 182.9 cm; Wt 58.4 kg
[2017-02-19 21:35] LABS: BASOPHILS # (AUTO) 0.02 K/uL (0.00-0.20); BASOPHILS % (AUTO) 0.2 % (0.0-2.0); EOSINOPHILS # (AUTO) 0.03 K/uL (0.00-0.70); EOSINOPHILS % (AUTO) 0.31 % (1.0-6.0); HEMOGLOBIN 15.3 g/dL (13.5-17.5); LYMPHOCYTES # (AUTO) 1.7 K/uL (1.0-4.8); LYMPHOCYTES % (AUTO) 19.2 % (22.0-44.0); MEAN CORPUSCULAR HEMOGLOBIN 29.2 pg (26.0-34.0); MEAN CORPUSCULAR HGB CONC 34.1 G/dL (31.0-37.0); MEAN CORPUSCULAR VOLUME 86 fL (80-100); MONOCYTES # (AUTO) 0.8 K/uL (0.1-1.0); MONOCYTES % (AUTO) 8.6 % (2.0-9.0); NEUTROPHILS # (AUTO) 6.3 K/uL (1.8-7.7); NEUTROPHILS % (AUTO) 71.8 % (40.0-70.0); PLATELET COUNT (AUTO) 194 K/uL (150-450); RED BLOOD CELL COUNT(AUTO) 5.25 MIL/uL (4.50-5.90); RED CELL DISTRIBUTION WIDTH 14.5 % (11.5-14.5); WHITE BLOOD COUNT (AUTO) 8.7 K/uL (4.5-11.0)
[2017-02-19 21:45] LABS: ANION GAP 6 mmol/L (8-16); CALCIUM, TOTAL 9.3 mg/dL (8.8-10.5); CARBON DIOXIDE 31 mmol/L (22-29); CHLORIDE 105 mmol/L (98-107); CREATININE 0.96 mg/dL (0.60-1.30); GLOMERULAR FILTR. RATE CALC > 60 mL/min (>60); POTASSIUM 4.1 mmol/L (3.5-5.1); SODIUM SERUM 142 mmol/L (136-145); UREA NITROGEN, BLOOD 13 mg/dL (7-18)
[2017-02-19 21:52] LABS: ALANINE AMINOTRANSFERASE 39 U/L (12-78); ALBUMIN 3.7 g/dL (3.4-5.0); ASPARTATE AMINOTRANSFERASE 28 U/L (15-37); BILIRUBIN,TOTAL 0.5 mg/dL (0.1-1.0); TOTAL PROTEIN, SERUM 7.4 g/dL (6.4-8.2)
[2017-02-19] MEDS ORDERED: ALBUTEROL SULFATE 5 MG/ML 20 ML NEB SOLN [BULK] NEB ONE (22:30)
[2017-02-19] MEDS ORDERED: DEXAMETHASONE SOD PHOS 4 MG/ML 5 ML VIAL IM ONE (22:30)
[2017-02-19] MEDS ORDERED: IPRATROPIUM BROMIDE 0.5 MG/2.5 ML NEB SOLUTION NEB ONE (22:30)
[2017-02-19] MEDS ORDERED: 0.9% SODIUM CHLORIDE 5 ML NEB SOLUTION NEB ONE (22:38)
[2017-02-19] MEDS ORDERED: BISACODYL 10 MG RECTAL RECTAL SUPPOSITORY PR PRN (23:15)
[2017-02-19] MEDS ORDERED: ACETAMINOPHEN 325 MG TABLET PO PRN (23:15)
[2017-02-19] MEDS ORDERED: MAGNESIUM HYDROXIDE SUSPENSION 30 ML UDCUP PO PRN (23:15)
[2017-02-19 23:52] LABS: ABG A-A DIFF O2 27.2 mmHg (10-20.0); ABG BASE EXCESS 6.6 mmol/L (-2.0-3.0); ABG OXYHEMOGLOBIN 86.6 % (94.0-100.0); ABG PCO2 53 mmHg (35-45); ABG PH 7.392 (7.35-7.450); TEMPERATURE, FAHRENHEIT, BG 98.6 FAHREN (96.0-98.6)
[2017-02-19 23:53] LABS: ALLEN TEST, BLOOD GAS Positive
[2017-02-20] VITALS (7 sets, daily range): BP systolic 105–135; BP diastolic 67–87
[2017-02-20] MEDS: ALBUTEROL SULFATE 2.5 MG/0.5 ML NEB SOLUTION NEB SCH ×6 (03:00→23:00)
[2017-02-20] MEDS: IPRATROPIUM BROMIDE 0.5 MG/2.5 ML NEB SOLUTION NEB SCH ×6 (03:00→23:00)
[2017-02-20] MEDS: MethylPREDNISolone SOD SUCC 125 MG/2 ML VIAL IVP SCH ×2 (05:03)
[2017-02-20] MEDS ORDERED: PANTOPRAZOLE SODIUM 40 MG/VIAL IVP SCH (09:00)
[2017-02-20] MEDS ORDERED: QUEtiapine FUMARATE 25 MG TABLET PO SCH (09:00)
[2017-02-20] MEDS: PredniSONE 20 MG TABLET PO SCH (13:30)
[2017-02-20] MEDS: HEPARIN SODIUM,PORCINE 5,000 UNITS/ML VIAL SQ SCH ×3 (13:30→16:00)
[2017-02-20] MEDS: PANTOPRAZOLE SODIUM 40 MG DR TABLET PO SCH (16:27)
[2017-02-20] MEDS: QUEtiapine FUMARATE 25 MG TABLET PO SCH ×2 (16:28→20:19)
[2017-02-20] MEDS: TIOTROPIUM BROMIDE 18 MCG/INH HANDIHALER [5] IH SCH (17:49)
[2017-02-20] MEDS: FLUTICASONE/VILANTEROL 100-25 MCG/INH INHALER [14] IH SCH (17:49)
[2017-02-21] MEDS: ALBUTEROL SULFATE 2.5 MG/0.5 ML NEB SOLUTION NEB SCH ×5 (03:00→19:00)
[2017-02-21] MEDS: IPRATROPIUM BROMIDE 0.5 MG/2.5 ML NEB SOLUTION NEB SCH ×5 (03:00→19:00)
[2017-02-21 03:47] VITALS: BP 124/76
[2017-02-21 07:33] VITALS: BP 126/78
[2017-02-21] MEDS: PredniSONE 20 MG TABLET PO SCH (08:49)
[2017-02-21] MEDS: PANTOPRAZOLE SODIUM 40 MG DR TABLET PO SCH (08:49)
[2017-02-21] MEDS: HEPARIN SODIUM,PORCINE 5,000 UNITS/ML VIAL SQ SCH ×3 (08:50→16:40)
[2017-02-21] MEDS: QUEtiapine FUMARATE 25 MG TABLET PO SCH ×3 (08:51→21:48)
[2017-02-21] MEDS: TIOTROPIUM BROMIDE 18 MCG/INH HANDIHALER [5] IH SCH (08:58)
[2017-02-21] MEDS: FLUTICASONE/VILANTEROL 100-25 MCG/INH INHALER [14] IH SCH (09:00)
[2017-02-21 11:24] VITALS: BP 137/80
[2017-02-21] MEDS ORDERED: LORazepam 1 MG TABLET PO PRN (12:00)
[2017-02-21 15:24] VITALS: BP 126/85
[2017-02-21] MEDS ORDERED: LORazepam 2 MG TABLET PO PRN (16:45)
[2017-02-21 21:55] VITALS: BP 128/89
[2017-02-22] MEDS ORDERED: PredniSONE 20 MG TABLET PO SCH (09:00)
== END 2017-02-21 22:20 | DRG 190 ==
LOC: EMS 21:03 → 5S 23:45 → 6S 02-20 21:50 → 6N 02-20 21:55
PROVIDERS: ADMIT Internal Medicine; ATTEND Internal Medicine
DX: J44.1 Chronic obstructive pulmonary disease with (acute) exacerbation (principal); G93.41 Metabolic encephalopathy; R45.851 Suicidal ideations; J84.112 Idiopathic pulmonary fibrosis; F25.0 Schizoaffective disorder, bipolar type; E03.9 Hypothyroidism, unspecified; I10 Essential (primary) hypertension; Z91.19 Patient's noncompliance with other medical treatment and regimen; Z88.8 Allergy status to other drugs, medicaments and biological substances; Z87.891 Personal history of nicotine dependence; Z72.89 Other problems related to lifestyle
CPT/HCPCS: 70450; 71250; 82805; 87081; 94644; 96372; 99291; G0480; J1100; J1644; J2930

== ENCOUNTER 2017-02-21 20:05 | Inpatient (IN) | payer MEDICARE, MEDICAID ==
[~2017-02-21] VITALS: Ht 170.2 cm; Wt 63.0 kg
[~2017-02-21 20:05] MED LIST changes: -METO-323 PO; +METO25XL PO
[2017-02-21 23:17] VITALS: BP 124/83
[2017-02-21] MEDS ORDERED: ACETAMINOPHEN 325 MG TABLET PO PRN (23:30)
[2017-02-21] MEDS ORDERED: DULoxetine HCL 20 MG CAPSULE PO PRN (23:30)
[2017-02-21] MEDS ORDERED: IPRATROPIUM BROMIDE 0.5 MG/2.5 ML NEB SOLUTION NEB PRN (23:30)
[2017-02-21] MEDS ORDERED: MAGNESIUM HYDROXIDE SUSPENSION 30 ML UDCUP PO PRN (23:30)
[2017-02-21] MEDS ORDERED: ALBUTEROL SULFATE 2.5 MG/0.5 ML NEB SOLUTION NEB PRN (23:30)
[2017-02-22] MEDS ORDERED: BISACODYL 5 MG EC TABLET PO PRN (00:15)
[2017-02-22 06:18] VITALS: BP 136/107
[2017-02-22 08:00] VITALS: BP 125/90
[2017-02-22] MEDS: PANTOPRAZOLE SODIUM 40 MG DR TABLET PO SCH (08:48)
[2017-02-22] MEDS: BENZTROPINE MESYLATE 1 MG TABLET PO SCH ×2 (08:48→20:43)
[2017-02-22] MEDS: QUEtiapine FUMARATE 25 MG TABLET PO SCH ×2 (08:48→17:13)
[2017-02-22] MEDS: LITHIUM CARBONATE 300 MG CAPSULE PO SCH ×2 (08:49→20:43)
[2017-02-22] MEDS ORDERED: QUEtiapine FUMARATE 25 MG TABLET PO SCH (09:00)
[2017-02-22] MEDS: TIOTROPIUM BROMIDE 18 MCG/INH HANDIHALER [5] IH SCH (09:01)
[2017-02-22] MEDS: FLUTICASONE/VILANTEROL 100-25 MCG/INH INHALER [14] IH SCH (09:01)
[2017-02-22] MEDS: PredniSONE 20 MG TABLET PO SCH (09:58)
[2017-02-22 10:20] LABS: BASOPHILS % (AUTO) 0.2 % (0.0-2.0); EOSINOPHILS % (AUTO) 0.1 % (1.0-6.0); HEMATOCRIT 40.4 % (41-53); HEMOGLOBIN 13.6 g/dL (13.5-17.5); LYMPHOCYTES % (AUTO) 18.4 % (22.0-44.0); MEAN CORPUSCULAR HEMOGLOBIN 29.2 pg (26.0-34.0); MEAN CORPUSCULAR HGB CONC 33.5 G/dL (31.0-37.0); MEAN CORPUSCULAR VOLUME 87 fL (80-100); MONOCYTES # (AUTO) 0.5 K/uL (0.1-1.0); NEUTROPHILS # (AUTO) 4.2 K/uL (1.8-7.7); NEUTROPHILS % (AUTO) 73.3 % (40.0-70.0); PLATELET COUNT (AUTO) 140 K/uL (150-450); RED BLOOD CELL COUNT(AUTO) 4.64 MIL/uL (4.50-5.90); RED CELL DISTRIBUTION WIDTH 14.4 % (11.5-14.5); WHITE BLOOD COUNT (AUTO) 5.7 K/uL (4.5-11.0)
[2017-02-22] MEDS: CloZAPine 25 MG TABLET PO SCH (13:18)
[2017-02-22 19:15] VITALS: BP 137/89
[2017-02-22] MEDS: QUEtiapine FUMARATE 300 MG TABLET PO SCH (20:43)
[2017-02-22] MEDS: DIVALPROEX SODIUM 500 MG ER TABLET PO SCH (20:44)
[2017-02-22] MEDS: LORazepam 2 MG TABLET PO PRN (21:32)
[2017-02-23 04:40] VITALS: BP 123/76
[2017-02-23] MEDS: LORazepam 2 MG TABLET PO PRN ×4 (05:25→20:57)
[2017-02-23 08:21] LABS: ALANINE AMINOTRANSFERASE 41 U/L (12-78); ALBUMIN 3.9 g/dL (3.4-5.0); ANION GAP 6 mmol/L (8-16); ASPARTATE AMINOTRANSFERASE 19 U/L (15-37); BILIRUBIN,TOTAL 0.3 mg/dL (0.1-1.0); CALCIUM, TOTAL 8.9 mg/dL (8.8-10.5); CARBON DIOXIDE 31 mmol/L (22-29); CHLORIDE 104 mmol/L (98-107); CREATININE 0.76 mg/dL (0.60-1.30); GLOMERULAR FILTR. RATE CALC > 60 mL/min (>60); POTASSIUM 4.1 mmol/L (3.5-5.1); SODIUM SERUM 141 mmol/L (136-145); TOTAL PROTEIN, SERUM 7.2 g/dL (6.4-8.2); UREA NITROGEN, BLOOD 21 mg/dL (7-18)
[2017-02-23] MEDS: LEVOTHYROXINE SODIUM 100 MCG TABLET PO SCH (08:32)
[2017-02-23] MEDS: FLUTICASONE/VILANTEROL 100-25 MCG/INH INHALER [14] IH SCH (08:32)
[2017-02-23] MEDS: CloZAPine 25 MG TABLET PO SCH (08:32)
[2017-02-23] MEDS: TIOTROPIUM BROMIDE 18 MCG/INH HANDIHALER [5] IH SCH (08:32)
[2017-02-23] MEDS: LITHIUM CARBONATE 300 MG CAPSULE PO SCH ×2 (08:33→20:58)
[2017-02-23] MEDS: BENZTROPINE MESYLATE 1 MG TABLET PO SCH ×2 (08:33→20:58)
[2017-02-23] MEDS: PANTOPRAZOLE SODIUM 40 MG DR TABLET PO SCH (08:33)
[2017-02-23] MEDS: PredniSONE 20 MG TABLET PO SCH (08:35)
[2017-02-23] MEDS: QUEtiapine FUMARATE 25 MG TABLET PO SCH ×2 (08:35→16:57)
[2017-02-23 09:19] VITALS: BP 136/93
[2017-02-23 09:27] LABS: APPEARANCE,URINE CLEAR (CLEAR); GLUCOSE, URINE (UA) NEGATIVE (NEGATIVE); KETONES,URINE NEGATIVE (NEGATIVE); LEUKOCYTE ESTERASE ,URINE NEGATIVE (NEGATIVE); OCCULT BLOOD,URINE NEGATIVE (NEGATIVE); PH,URINE 5.5 (5.0-8.0); PROTEIN,URINE NEGATIVE (NEGATIVE)
[2017-02-23 09:32] LABS: ADD UA MICROSCOPIC NO
[2017-02-23] MEDS: LOPERAMIDE HCL 2 MG CAPSULE PO PRN ×2 (10:45→12:01)
[2017-02-23] MEDS: QUEtiapine FUMARATE 300 MG TABLET PO SCH (20:57)
[2017-02-23] MEDS: DIVALPROEX SODIUM 500 MG ER TABLET PO SCH (20:58)
[2017-02-23 21:05] VITALS: BP 109/70
[2017-02-24 04:56] VITALS: BP 117/89
[2017-02-24] MEDS: LEVOTHYROXINE SODIUM 100 MCG TABLET PO SCH (06:23)
[2017-02-24] MEDS: FLUTICASONE/VILANTEROL 100-25 MCG/INH INHALER [14] IH SCH (07:59)
[2017-02-24] MEDS: TIOTROPIUM BROMIDE 18 MCG/INH HANDIHALER [5] IH SCH (08:00)
[2017-02-24] MEDS: BENZTROPINE MESYLATE 1 MG TABLET PO SCH ×2 (08:01→21:14)
[2017-02-24] MEDS: PANTOPRAZOLE SODIUM 40 MG DR TABLET PO SCH (08:01)
[2017-02-24] MEDS: LITHIUM CARBONATE 300 MG CAPSULE PO SCH ×2 (08:01→21:14)
[2017-02-24] MEDS: CloZAPine 25 MG TABLET PO SCH (08:02)
[2017-02-24] MEDS: QUEtiapine FUMARATE 25 MG TABLET PO SCH ×2 (08:04→16:27)
[2017-02-24] MEDS: PredniSONE 20 MG TABLET PO SCH (08:57)
[2017-02-24 09:00] VITALS: BP 143/88
[2017-02-24 16:15] VITALS: BP 121/79
[2017-02-24] MEDS: LORazepam 2 MG TABLET PO PRN (16:27)
[2017-02-24] MEDS: DIVALPROEX SODIUM 500 MG ER TABLET PO SCH (21:14)
[2017-02-24] MEDS: QUEtiapine FUMARATE 300 MG TABLET PO SCH (21:14)
[2017-02-24] MEDS: LOPERAMIDE HCL 2 MG CAPSULE PO PRN (23:47)
[2017-02-25 00:02] VITALS: BP 140/89
[2017-02-25] MEDS: LORazepam 2 MG TABLET PO PRN ×2 (00:06→08:24)
[2017-02-25] MEDS: ZOLPIDEM TARTRATE 10 MG TABLET PO PRN (00:06)
[2017-02-25] MEDS: LEVOTHYROXINE SODIUM 100 MCG TABLET PO SCH (06:50)
[2017-02-25] MEDS: PANTOPRAZOLE SODIUM 40 MG DR TABLET PO SCH (08:21)
[2017-02-25] MEDS: QUEtiapine FUMARATE 25 MG TABLET PO SCH ×2 (08:21→16:38)
[2017-02-25] MEDS: LITHIUM CARBONATE 300 MG CAPSULE PO SCH ×2 (08:21→21:04)
[2017-02-25] MEDS: TIOTROPIUM BROMIDE 18 MCG/INH HANDIHALER [5] IH SCH (08:21)
[2017-02-25] MEDS: CloZAPine 25 MG TABLET PO SCH (08:21)
[2017-02-25] MEDS: FLUTICASONE/VILANTEROL 100-25 MCG/INH INHALER [14] IH SCH (08:21)
[2017-02-25] MEDS: BENZTROPINE MESYLATE 1 MG TABLET PO SCH ×2 (08:24→21:06)
[2017-02-25 08:31] LABS: HEPATITIS Bs ANTIGEN SCREEN P Negative (Negative); HEPATITIS C AB SCREEN <0.1 s/co ratio (0.0-0.9)
[2017-02-25] MEDS: MAGNESIUM SULFATE 454 GM BOX TP SCH (09:00)
[2017-02-25 16:15] VITALS: BP 118/87
[2017-02-25] MEDS: DIVALPROEX SODIUM 500 MG ER TABLET PO SCH (21:04)
[2017-02-25] MEDS: QUEtiapine FUMARATE 300 MG TABLET PO SCH (21:05)
[2017-02-26 01:45] VITALS: BP 132/75
[2017-02-26] MEDS: ZOLPIDEM TARTRATE 10 MG TABLET PO PRN (01:50)
[2017-02-26] MEDS: LOPERAMIDE HCL 2 MG CAPSULE PO PRN (01:50)
[2017-02-26 02:09] VITALS: BP 132/75
[2017-02-26] MEDS: LEVOTHYROXINE SODIUM 100 MCG TABLET PO SCH (06:52)
[2017-02-26] MEDS: PANTOPRAZOLE SODIUM 40 MG DR TABLET PO SCH (08:30)
[2017-02-26] MEDS: QUEtiapine FUMARATE 25 MG TABLET PO SCH ×2 (08:30→17:05)
[2017-02-26] MEDS: CloZAPine 25 MG TABLET PO SCH (08:31)
[2017-02-26] MEDS: FLUTICASONE/VILANTEROL 100-25 MCG/INH INHALER [14] IH SCH (08:31)
[2017-02-26] MEDS: LITHIUM CARBONATE 300 MG CAPSULE PO SCH ×2 (08:31→20:44)
[2017-02-26] MEDS: BENZTROPINE MESYLATE 1 MG TABLET PO SCH ×2 (08:31→20:44)
[2017-02-26] MEDS: TIOTROPIUM BROMIDE 18 MCG/INH HANDIHALER [5] IH SCH (08:32)
[2017-02-26 09:00] VITALS: BP 122/80
[2017-02-26] MEDS: MAGNESIUM SULFATE 454 GM BOX TP SCH (09:00)
[2017-02-26] MEDS: LORazepam 2 MG TABLET PO PRN (17:15)
[2017-02-26 19:04] VITALS: BP 118/86
[2017-02-26] MEDS: QUEtiapine FUMARATE 300 MG TABLET PO SCH (20:44)
[2017-02-26] MEDS: DIVALPROEX SODIUM 500 MG ER TABLET PO SCH (20:44)
[2017-02-27] MEDS: ZOLPIDEM TARTRATE 10 MG TABLET PO PRN (02:12)
[2017-02-27 03:11] VITALS: BP 118/79
[2017-02-27] MEDS: LEVOTHYROXINE SODIUM 100 MCG TABLET PO SCH (06:30)
[2017-02-27 06:39] LABS: BASOPHILS # (AUTO) 0.01 K/uL (0.00-0.20); BASOPHILS % (AUTO) 0.2 % (0.0-2.0); EOSINOPHILS % (AUTO) 0.15 % (1.0-6.0); HEMOGLOBIN 14.4 g/dL (13.5-17.5); LYMPHOCYTES # (AUTO) 1.1 K/uL (1.0-4.8); LYMPHOCYTES % (AUTO) 33.2 % (22.0-44.0); MEAN CORPUSCULAR HEMOGLOBIN 29.1 pg (26.0-34.0); MEAN CORPUSCULAR HGB CONC 34.2 G/dL (31.0-37.0); MEAN CORPUSCULAR VOLUME 85 fL (80-100); MONOCYTES # (AUTO) 0.5 K/uL (0.1-1.0); MONOCYTES % (AUTO) 15.7 % (2.0-9.0); NEUTROPHILS # (AUTO) 1.7 K/uL (1.8-7.7); NEUTROPHILS % (AUTO) 50.8 % (40.0-70.0); PLATELET COUNT (AUTO) 138 K/uL (150-450); RED BLOOD CELL COUNT(AUTO) 4.93 MIL/uL (4.50-5.90); RED CELL DISTRIBUTION WIDTH 14.3 % (11.5-14.5); WHITE BLOOD COUNT (AUTO) 3.3 K/uL (4.5-11.0)
[2017-02-27 06:54] LABS: ANION GAP 6 mmol/L (8-16); CALCIUM, TOTAL 8.9 mg/dL (8.8-10.5); CARBON DIOXIDE 31 mmol/L (22-29); CHLORIDE 104 mmol/L (98-107); GLOMERULAR FILTR. RATE CALC > 60 mL/min (>60); PHOSPHORUS 3.8 mg/dL (2.5-4.9); POTASSIUM 4.3 mmol/L (3.5-5.1); SODIUM SERUM 141 mmol/L (136-145); UREA NITROGEN, BLOOD 18 mg/dL (7-18)
[2017-02-27] MEDS: FLUTICASONE/VILANTEROL 100-25 MCG/INH INHALER [14] IH SCH (08:20)
[2017-02-27] MEDS: TIOTROPIUM BROMIDE 18 MCG/INH HANDIHALER [5] IH SCH (08:20)
[2017-02-27] MEDS: PANTOPRAZOLE SODIUM 40 MG DR TABLET PO SCH (08:21)
[2017-02-27] MEDS: BENZTROPINE MESYLATE 1 MG TABLET PO SCH ×2 (08:21→20:13)
[2017-02-27] MEDS: CloZAPine 25 MG TABLET PO SCH (08:21)
[2017-02-27] MEDS: LITHIUM CARBONATE 300 MG CAPSULE PO SCH ×2 (08:21→20:13)
[2017-02-27] MEDS: QUEtiapine FUMARATE 25 MG TABLET PO SCH ×2 (08:22→16:09)
[2017-02-27] MEDS: MAGNESIUM SULFATE 454 GM BOX TP SCH (08:22)
[2017-02-27 10:04] VITALS: BP 123/84
[2017-02-27 19:32] VITALS: BP 126/84
[2017-02-27] MEDS: DIVALPROEX SODIUM 500 MG ER TABLET PO SCH (20:13)
[2017-02-27] MEDS: QUEtiapine FUMARATE 300 MG TABLET PO SCH (20:13)
[2017-02-28 06:26] VITALS: BP 128/84
[2017-02-28] MEDS: LEVOTHYROXINE SODIUM 100 MCG TABLET PO SCH (06:44)
[2017-02-28 08:22] VITALS: BP 130/92
[2017-02-28] MEDS: QUEtiapine FUMARATE 25 MG TABLET PO SCH ×2 (08:45→16:53)
[2017-02-28] MEDS: TIOTROPIUM BROMIDE 18 MCG/INH HANDIHALER [5] IH SCH (08:45)
[2017-02-28] MEDS: CloZAPine 25 MG TABLET PO SCH (08:46)
[2017-02-28] MEDS: PANTOPRAZOLE SODIUM 40 MG DR TABLET PO SCH (08:46)
[2017-02-28] MEDS: FLUTICASONE/VILANTEROL 100-25 MCG/INH INHALER [14] IH SCH (08:46)
[2017-02-28] MEDS: LITHIUM CARBONATE 300 MG CAPSULE PO SCH ×2 (08:46→20:12)
[2017-02-28] MEDS: BENZTROPINE MESYLATE 1 MG TABLET PO SCH ×2 (08:46→20:12)
[2017-02-28] MEDS: MAGNESIUM SULFATE 454 GM BOX TP SCH (08:47)
[2017-02-28 17:00] VITALS: BP 127/82
[2017-02-28] MEDS: DIVALPROEX SODIUM 500 MG ER TABLET PO SCH (20:12)
[2017-02-28] MEDS: QUEtiapine FUMARATE 300 MG TABLET PO SCH (20:12)
[2017-03-01 04:41] VITALS: BP 128/84
[2017-03-01] MEDS: LEVOTHYROXINE SODIUM 100 MCG TABLET PO SCH (06:27)
[2017-03-01 07:23] LABS: HEMATOCRIT 43.2 % (41-53); HEMOGLOBIN 14.6 g/dL (13.5-17.5); MEAN CORPUSCULAR HEMOGLOBIN 28.9 pg (26.0-34.0); MEAN CORPUSCULAR HGB CONC 33.9 G/dL (31.0-37.0); MEAN CORPUSCULAR VOLUME 85 fL (80-100); PLATELET COUNT (AUTO) 134 K/uL (150-450); RED BLOOD CELL COUNT(AUTO) 5.07 MIL/uL (4.50-5.90); RED CELL DISTRIBUTION WIDTH 14.3 % (11.5-14.5); WHITE BLOOD COUNT (AUTO) 3.4 K/uL (4.5-11.0)
[2017-03-01 08:15] VITALS: BP 123/92
[2017-03-01] MEDS: CloZAPine 25 MG TABLET PO SCH (08:50)
[2017-03-01] MEDS: FLUTICASONE/VILANTEROL 100-25 MCG/INH INHALER [14] IH SCH (08:50)
[2017-03-01] MEDS: TIOTROPIUM BROMIDE 18 MCG/INH HANDIHALER [5] IH SCH (08:50)
[2017-03-01] MEDS: LITHIUM CARBONATE 300 MG CAPSULE PO SCH ×2 (08:51→20:36)
[2017-03-01] MEDS: MAGNESIUM SULFATE 454 GM BOX TP SCH (08:51)
[2017-03-01] MEDS: QUEtiapine FUMARATE 25 MG TABLET PO SCH ×2 (08:51→16:16)
[2017-03-01] MEDS: BENZTROPINE MESYLATE 1 MG TABLET PO SCH ×2 (08:51→20:36)
[2017-03-01] MEDS: PANTOPRAZOLE SODIUM 40 MG DR TABLET PO SCH (08:51)
[2017-03-01 09:27] LABS: EOSINOPHILS % (MANUAL) 1 % (1-6); LYMPHOCYTES % (MANUAL) 33 % (22-44); TOTAL CELLS COUNTED 100
[2017-03-01 09:28] LABS: RBC MORPHOLOGY COMMENT NORMAL RBC MORPH
[2017-03-01] MEDS: LORazepam 2 MG TABLET PO PRN (16:16)
[2017-03-01 17:05] VITALS: BP 162/102
[2017-03-01] MEDS: QUEtiapine FUMARATE 300 MG TABLET PO SCH (20:36)
[2017-03-01] MEDS: DIVALPROEX SODIUM 500 MG ER TABLET PO SCH (20:36)
[2017-03-02 06:05] VITALS: BP 126/84
[2017-03-02] MEDS: LEVOTHYROXINE SODIUM 100 MCG TABLET PO SCH (06:49)
[2017-03-02 08:15] VITALS: BP 136/80
[2017-03-02] MEDS: FLUTICASONE/VILANTEROL 100-25 MCG/INH INHALER [14] IH SCH (08:42)
[2017-03-02] MEDS: PANTOPRAZOLE SODIUM 40 MG DR TABLET PO SCH (08:43)
[2017-03-02] MEDS: TIOTROPIUM BROMIDE 18 MCG/INH HANDIHALER [5] IH SCH (08:43)
[2017-03-02] MEDS: CloZAPine 25 MG TABLET PO SCH (08:43)
[2017-03-02] MEDS: BENZTROPINE MESYLATE 1 MG TABLET PO SCH ×2 (08:43→20:38)
[2017-03-02] MEDS: LITHIUM CARBONATE 300 MG CAPSULE PO SCH ×2 (08:44→20:38)
[2017-03-02] MEDS: QUEtiapine FUMARATE 25 MG TABLET PO SCH ×2 (08:44→17:04)
[2017-03-02 17:47] VITALS: BP 140/90
[2017-03-02] MEDS: QUEtiapine FUMARATE 300 MG TABLET PO SCH (20:38)
[2017-03-02] MEDS: DIVALPROEX SODIUM 500 MG ER TABLET PO SCH (20:38)
[2017-03-03 02:59] VITALS: BP 134/80
[2017-03-03] MEDS: LORazepam 2 MG TABLET PO PRN (05:38)
[2017-03-03] MEDS: LEVOTHYROXINE SODIUM 100 MCG TABLET PO SCH (06:37)
[2017-03-03] MEDS: FLUTICASONE/VILANTEROL 100-25 MCG/INH INHALER [14] IH SCH (08:20)
[2017-03-03] MEDS: TIOTROPIUM BROMIDE 18 MCG/INH HANDIHALER [5] IH SCH (08:20)
[2017-03-03] MEDS: CloZAPine 25 MG TABLET PO SCH (08:25)
[2017-03-03] MEDS: LITHIUM CARBONATE 300 MG CAPSULE PO SCH ×2 (08:25→20:32)
[2017-03-03] MEDS: PANTOPRAZOLE SODIUM 40 MG DR TABLET PO SCH (08:25)
[2017-03-03] MEDS: BENZTROPINE MESYLATE 1 MG TABLET PO SCH ×2 (08:25→20:32)
[2017-03-03] MEDS: QUEtiapine FUMARATE 25 MG TABLET PO SCH ×2 (08:25→16:20)
[2017-03-03 08:39] VITALS: BP 137/91
[2017-03-03] MEDS: LOPERAMIDE HCL 2 MG CAPSULE PO PRN (16:20)
[2017-03-03 16:39] VITALS: BP 125/87
[2017-03-03] MEDS: DIVALPROEX SODIUM 500 MG ER TABLET PO SCH (20:32)
[2017-03-03] MEDS: QUEtiapine FUMARATE 300 MG TABLET PO SCH (20:32)
[2017-03-03] MEDS ORDERED: FLUT1AER IH (23:13)
[2017-03-03] MEDS ORDERED: LEVO100 PO (23:13)
[2017-03-03] MEDS ORDERED: PANT40TA25 PO (23:14)
[2017-03-03] MEDS ORDERED: TIOT185 IH (23:14)
[2017-03-03] MEDS ORDERED: QUET300T2 PO (23:24)
[2017-03-04 02:01] VITALS: BP 128/97
[2017-03-04] MEDS: LORazepam 2 MG TABLET PO PRN (02:03)
[2017-03-04] MEDS: LEVOTHYROXINE SODIUM 100 MCG TABLET PO SCH (07:06)
[2017-03-04] MEDS: LITHIUM CARBONATE 300 MG CAPSULE PO SCH (08:01)
[2017-03-04] MEDS: PANTOPRAZOLE SODIUM 40 MG DR TABLET PO SCH (08:02)
[2017-03-04] MEDS: TIOTROPIUM BROMIDE 18 MCG/INH HANDIHALER [5] IH SCH (08:02)
[2017-03-04] MEDS: CloZAPine 25 MG TABLET PO SCH (08:02)
[2017-03-04] MEDS: FLUTICASONE/VILANTEROL 100-25 MCG/INH INHALER [14] IH SCH (08:02)
[2017-03-04] MEDS: QUEtiapine FUMARATE 25 MG TABLET PO SCH (08:02)
[2017-03-04] MEDS: BENZTROPINE MESYLATE 1 MG TABLET PO SCH (08:02)
[2017-03-04 09:01] VITALS: BP 126/59
== END 2017-03-04 09:00 | disposition home or self-care (01) | DRG 885 ==
LOC: EDSTATUS 20:08 → 3EX 23:19
DX: F25.0 Schizoaffective disorder, bipolar type (principal); D69.6 Thrombocytopenia, unspecified; J44.1 Chronic obstructive pulmonary disease with (acute) exacerbation; B15.9 Hepatitis A without hepatic coma; I10 Essential (primary) hypertension; E03.9 Hypothyroidism, unspecified; E55.9 Vitamin D deficiency, unspecified; F17.200 Nicotine dependence, unspecified, uncomplicated; G47.00 Insomnia, unspecified; K21.9 Gastro-esophageal reflux disease without esophagitis; F12.10 Cannabis abuse, uncomplicated; M79.672 Pain in left foot; M79.671 Pain in right foot; Z88.8 Allergy status to other drugs, medicaments and biological substances; Z72.89 Other problems related to lifestyle
CPT/HCPCS: 80074; 80307; 83735; 84100; 87081

== ENCOUNTER 2017-05-12 15:16 | Inpatient (IN) | payer MEDICARE, OTHER ==
[~2017-05-12] VITALS: Ht 170.2 cm; Wt 61.2 kg
[~2017-05-12 15:16] MED LIST changes: +FLUT1AER IH; +LEVO100 PO; -LEVO25TA9 PO; -METO25XL PO; +PANT40TA25 PO; +QUET300T2 PO; +TIOT185 IH
[2017-05-12 16:10] LABS: EOSINOPHILS # (AUTO) 0.01 K/uL (0.00-0.70); EOSINOPHILS % (AUTO) 0.08 % (1.0-6.0); HEMATOCRIT 50.9 % (41-53); HEMOGLOBIN 16.2 g/dL (13.5-17.5); LYMPHOCYTES % (AUTO) 15.2 % (22.0-44.0); MEAN CORPUSCULAR HEMOGLOBIN 27.3 pg (26.0-34.0); MEAN CORPUSCULAR HGB CONC 31.9 G/dL (31.0-37.0); MEAN CORPUSCULAR VOLUME 86 fL (80-100); MONOCYTES # (AUTO) 0.6 K/uL (0.1-1.0); MONOCYTES % (AUTO) 8.4 % (2.0-9.0); NEUTROPHILS # (AUTO) 5.2 K/uL (1.8-7.7); NEUTROPHILS % (AUTO) 76.4 % (40.0-70.0); PLATELET COUNT (AUTO) 157 K/uL (150-450); RED BLOOD CELL COUNT(AUTO) 5.95 MIL/uL (4.50-5.90); WHITE BLOOD COUNT (AUTO) 6.8 K/uL (4.5-11.0)
[2017-05-12 16:41] LABS: ANION GAP 3 mmol/L (8-16); CALCIUM, TOTAL 9.1 mg/dL (8.8-10.5); CARBON DIOXIDE 35 mmol/L (22-29); CHLORIDE 103 mmol/L (98-107); CREATININE 0.89 mg/dL (0.60-1.30); GLOMERULAR FILTR. RATE CALC > 60 mL/min (>60); POTASSIUM 4.5 mmol/L (3.5-5.1); SODIUM SERUM 141 mmol/L (136-145); UREA NITROGEN, BLOOD 12 mg/dL (7-18)
[2017-05-12 16:42] LABS: LITHIUM 0.82 mmol/L (0.60-1.20)
[2017-05-12 16:47] LABS: ALANINE AMINOTRANSFERASE 14 U/L (12-78); ALBUMIN 3.6 g/dL (3.4-5.0); ASPARTATE AMINOTRANSFERASE 14 U/L (15-37); BILIRUBIN,TOTAL 0.3 mg/dL (0.1-1.0); VALPROIC ACID 50 mcg/mL (50-100)
[2017-05-12] MEDS ORDERED: ZOLPIDEM TARTRATE 10 MG TABLET PO PRN (17:30)
[2017-05-12] MEDS ORDERED: CLOZ25TA4 PO (17:34)
[2017-05-12] MEDS ORDERED: IPRATROPIUM BROMIDE 0.5 MG/2.5 ML NEB SOLUTION NEB ONE ×2 (18:15→23:15)
[2017-05-12] MEDS ORDERED: ALBUTEROL SULFATE 5 MG/ML 20 ML NEB SOLN [BULK] NEB ONE ×2 (18:15→23:03)
[2017-05-12] MEDS ORDERED: 0.9% SODIUM CHLORIDE 5 ML NEB SOLUTION NEB ONE ×3 (18:46→23:14)
[2017-05-12] MEDS ORDERED: LORazepam 2 MG/ML VIAL IM ONE (19:00)
[2017-05-12] MEDS ORDERED: RisperiDONE 1 MG TABLET PO ONE (19:00)
[2017-05-12] MEDS: DIVALPROEX SODIUM 500 MG ER TABLET PO SCH ×2 (21:00→22:11)
[2017-05-12] MEDS: BENZTROPINE MESYLATE 1 MG TABLET PO SCH ×2 (21:00→22:11)
[2017-05-12] MEDS: LITHIUM CARBONATE 300 MG CAPSULE PO SCH ×2 (21:00→22:11)
[2017-05-12] MEDS ORDERED: QUEtiapine FUMARATE 25 MG TABLET PO SCH (21:00)
[2017-05-12] MEDS: QUEtiapine FUMARATE 300 MG TABLET PO SCH (21:00)
[2017-05-12] MEDS ORDERED: PredniSONE 20 MG TABLET PO ONE (23:15)
[2017-05-13] VITALS (7 sets, daily range): BP systolic 117–142; BP diastolic 74–82
[2017-05-13] MEDS ORDERED: BISACODYL 10 MG RECTAL RECTAL SUPPOSITORY PR PRN (00:45)
[2017-05-13] MEDS ORDERED: GuaiFENesin/D-METHORPHAN/PHENYLEPH 5 ML LIQUID ORAL.SYG PO PRN (00:45)
[2017-05-13] MEDS ORDERED: ONDANSETRON HCL 4 MG/2 ML VIAL IVP PRN (00:45)
[2017-05-13] MEDS ORDERED: MAGNESIUM HYDROXIDE SUSPENSION 30 ML UDCUP PO PRN (00:45)
[2017-05-13] MEDS ORDERED: ACETAMINOPHEN 325 MG TABLET PO PRN (00:45)
[2017-05-13] MEDS ORDERED: ZOLPIDEM TARTRATE 5 MG TABLET PO PRN (00:45)
[2017-05-13] MEDS ORDERED: HYDROCODONE/ACETAMINOPHEN 5-325 MG TABLET PO PRN (00:45)
[2017-05-13] MEDS ORDERED: BENZOCAINE/MENTHOL LOZENGE [8 LOZENGES/PACKET] MM PRN (01:00)
[2017-05-13] MEDS ORDERED: MethylPREDNISolone SOD SUCC 125 MG/2 ML VIAL IVP SCH (06:00)
[2017-05-13] MEDS: LORazepam 2 MG TABLET PO PRN ×3 (06:14→20:39)
[2017-05-13] MEDS: LEVOTHYROXINE SODIUM 100 MCG TABLET PO SCH (06:14)
[2017-05-13 08:44] LABS: CHOL/HDL RATIO 2.4 (4.2-7.3)
[2017-05-13] MEDS: IPRATROPIUM BROMIDE 0.5 MG/2.5 ML NEB SOLUTION NEB SCH ×4 (08:53→20:19)
[2017-05-13] MEDS: ALBUTEROL SULFATE 2.5 MG/0.5 ML NEB SOLUTION NEB SCH ×4 (08:53→20:19)
[2017-05-13] MEDS: TIOTROPIUM BROMIDE 18 MCG/INH HANDIHALER [5] IH SCH (08:59)
[2017-05-13] MEDS ORDERED: PredniSONE 10 MG TABLET PO SCH (09:00)
[2017-05-13] MEDS: FLUTICASONE/VILANTEROL 100-25 MCG/INH INHALER [14] IH SCH (09:00)
[2017-05-13] MEDS: QUEtiapine FUMARATE 25 MG TABLET PO SCH ×2 (09:00→16:51)
[2017-05-13] MEDS: LITHIUM CARBONATE 300 MG CAPSULE PO SCH ×2 (09:00→20:38)
[2017-05-13] MEDS: BENZTROPINE MESYLATE 1 MG TABLET PO SCH ×2 (09:00→20:38)
[2017-05-13] MEDS: PANTOPRAZOLE SODIUM 40 MG DR TABLET PO SCH (09:00)
[2017-05-13] MEDS ORDERED: PredniSONE 10 MG TABLET PO ONE (09:00)
[2017-05-13] MEDS: HEPARIN SODIUM,PORCINE 5,000 UNITS/ML VIAL SQ SCH ×2 (09:00→21:00)
[2017-05-13] MEDS: CloZAPine 25 MG TABLET PO SCH (09:00)
[2017-05-13] MEDS: MethylPREDNISolone SOD SUCC 125 MG/2 ML VIAL IVP SCH (17:30)
[2017-05-13] MEDS: DIVALPROEX SODIUM 500 MG ER TABLET PO SCH (20:38)
[2017-05-13] MEDS: QUEtiapine FUMARATE 300 MG TABLET PO SCH (20:38)
[2017-05-14] MEDS: MethylPREDNISolone SOD SUCC 125 MG/2 ML VIAL IVP SCH ×5 (00:01→22:40)
[2017-05-14 05:08] VITALS: BP 104/75
[2017-05-14] MEDS: LEVOTHYROXINE SODIUM 100 MCG TABLET PO SCH (05:48)
[2017-05-14 06:46] LABS: ALANINE AMINOTRANSFERASE 13 U/L (12-78); ALBUMIN 3.2 g/dL (3.4-5.0); ANION GAP 5 mmol/L (8-16); ASPARTATE AMINOTRANSFERASE 8 U/L (15-37); BILIRUBIN,TOTAL 0.3 mg/dL (0.1-1.0); CALCIUM, TOTAL 9.1 mg/dL (8.8-10.5); CARBON DIOXIDE 32 mmol/L (22-29); CHLORIDE 102 mmol/L (98-107); CREATININE 0.65 mg/dL (0.60-1.30); GLOMERULAR FILTR. RATE CALC > 60 mL/min (>60); PHOSPHORUS 3.1 mg/dL (2.5-4.9); POTASSIUM 4.8 mmol/L (3.5-5.1); SODIUM SERUM 139 mmol/L (136-145); TOTAL PROTEIN, SERUM 6.3 g/dL (6.4-8.2); UREA NITROGEN, BLOOD 11 mg/dL (7-18)
[2017-05-14 06:58] LABS: BASOPHILS % (AUTO) 0.1 % (0.0-2.0); EOSINOPHILS % (AUTO) 0 % (1.0-6.0); HEMATOCRIT 43.5 % (41-53); HEMOGLOBIN 14.4 g/dL (13.5-17.5); LYMPHOCYTES # (AUTO) 0.5 K/uL (1.0-4.8); LYMPHOCYTES % (AUTO) 3.8 % (22.0-44.0); MEAN CORPUSCULAR HEMOGLOBIN 27.8 pg (26.0-34.0); MEAN CORPUSCULAR HGB CONC 33.2 G/dL (31.0-37.0); MEAN CORPUSCULAR VOLUME 84 fL (80-100); MONOCYTES # (AUTO) 0.2 K/uL (0.1-1.0); NEUTROPHILS # (AUTO) 11.5 K/uL (1.8-7.7); PLATELET COUNT (AUTO) 146 K/uL (150-450); RED BLOOD CELL COUNT(AUTO) 5.18 MIL/uL (4.50-5.90); RED CELL DISTRIBUTION WIDTH 15.7 % (11.5-14.5); WHITE BLOOD COUNT (AUTO) 12.3 K/uL (4.5-11.0)
[2017-05-14 06:59] LABS: NEUTROPHILS % (AUTO) 94.1 % (40.0-70.0)
[2017-05-14] MEDS: TIOTROPIUM BROMIDE 18 MCG/INH HANDIHALER [5] IH SCH (08:05)
[2017-05-14] MEDS: FLUTICASONE/VILANTEROL 100-25 MCG/INH INHALER [14] IH SCH (08:05)
[2017-05-14] MEDS: LORazepam 2 MG TABLET PO PRN ×3 (08:06→22:03)
[2017-05-14] MEDS: BENZTROPINE MESYLATE 1 MG TABLET PO SCH ×2 (08:06→20:30)
[2017-05-14] MEDS: QUEtiapine FUMARATE 25 MG TABLET PO SCH ×2 (08:07→17:36)
[2017-05-14] MEDS: PANTOPRAZOLE SODIUM 40 MG DR TABLET PO SCH (08:07)
[2017-05-14] MEDS: CloZAPine 25 MG TABLET PO SCH (08:07)
[2017-05-14] MEDS: LITHIUM CARBONATE 300 MG CAPSULE PO SCH ×2 (08:07→20:30)
[2017-05-14 08:10] VITALS: BP 116/76
[2017-05-14] MEDS: HEPARIN SODIUM,PORCINE 5,000 UNITS/ML VIAL SQ SCH ×2 (08:10→20:32)
[2017-05-14] MEDS: IPRATROPIUM BROMIDE 0.5 MG/2.5 ML NEB SOLUTION NEB SCH ×4 (09:00→20:48)
[2017-05-14] MEDS ORDERED: PredniSONE 20 MG TABLET PO ONE (09:00)
[2017-05-14] MEDS: ALBUTEROL SULFATE 2.5 MG/0.5 ML NEB SOLUTION NEB SCH ×4 (09:00→20:48)
[2017-05-14] MEDS: QUEtiapine FUMARATE 100 MG TABLET PO PRN ×2 (11:03→22:39)
[2017-05-14 11:09] VITALS: BP 133/68
[2017-05-14 15:35] VITALS: BP 128/69
[2017-05-14 16:10] LABS: CLOZAPINE 118 ng/mL (350-650); CLOZAPINE & NORCLOZAPINE 190 ng/mL; NORCLOZAPINE 72 ng/mL (Not Estab.)
[2017-05-14 19:33] VITALS: BP 114/69
[2017-05-14] MEDS: DIVALPROEX SODIUM 500 MG ER TABLET PO SCH (20:30)
[2017-05-14] MEDS: QUEtiapine FUMARATE 300 MG TABLET PO SCH (20:30)
[2017-05-15] MEDS: LORazepam 2 MG TABLET PO PRN ×3 (01:52→17:51)
[2017-05-15] MEDS: QUEtiapine FUMARATE 100 MG TABLET PO PRN ×2 (01:52→06:13)
[2017-05-15 04:58] VITALS: BP 117/68
[2017-05-15] MEDS: MethylPREDNISolone SOD SUCC 125 MG/2 ML VIAL IVP SCH ×3 (06:13→17:51)
[2017-05-15] MEDS: LEVOTHYROXINE SODIUM 100 MCG TABLET PO SCH (06:13)
[2017-05-15 07:58] LABS: EOSINOPHILS % (AUTO) 0.01 % (1.0-6.0); HEMATOCRIT 45.9 % (41-53); HEMOGLOBIN 14.9 g/dL (13.5-17.5); LYMPHOCYTES # (AUTO) 0.4 K/uL (1.0-4.8); LYMPHOCYTES % (AUTO) 3.5 % (22.0-44.0); MEAN CORPUSCULAR HEMOGLOBIN 27.8 pg (26.0-34.0); MEAN CORPUSCULAR HGB CONC 32.5 G/dL (31.0-37.0); MEAN CORPUSCULAR VOLUME 85 fL (80-100); MONOCYTES # (AUTO) 0.4 K/uL (0.1-1.0); MONOCYTES % (AUTO) 2.9 % (2.0-9.0); NEUTROPHILS # (AUTO) 11.1 K/uL (1.8-7.7); PLATELET COUNT (AUTO) 126 K/uL (150-450); RED BLOOD CELL COUNT(AUTO) 5.37 MIL/uL (4.50-5.90); RED CELL DISTRIBUTION WIDTH 16.4 % (11.5-14.5); WHITE BLOOD COUNT (AUTO) 11.8 K/uL (4.5-11.0)
[2017-05-15 08:00] VITALS: BP 111/72
[2017-05-15 08:02] LABS: NEUTROPHILS % (AUTO) 93.6 % (40.0-70.0)
[2017-05-15 08:11] LABS: ANION GAP 4 mmol/L (8-16); CALCIUM, TOTAL 9.4 mg/dL (8.8-10.5); CARBON DIOXIDE 32 mmol/L (22-29); CHLORIDE 106 mmol/L (98-107); CREATININE 0.72 mg/dL (0.60-1.30); GLOMERULAR FILTR. RATE CALC > 60 mL/min (>60); POTASSIUM 4.5 mmol/L (3.5-5.1); SODIUM SERUM 142 mmol/L (136-145); UREA NITROGEN, BLOOD 17 mg/dL (7-18)
[2017-05-15] MEDS: ALBUTEROL SULFATE 2.5 MG/0.5 ML NEB SOLUTION NEB SCH ×4 (08:58→21:00)
[2017-05-15] MEDS: IPRATROPIUM BROMIDE 0.5 MG/2.5 ML NEB SOLUTION NEB SCH ×4 (08:58→21:00)
[2017-05-15] MEDS ORDERED: PredniSONE 10 MG TABLET PO ONE (09:00)
[2017-05-15 11:15] VITALS: BP 106/71
[2017-05-15] MEDS: TIOTROPIUM BROMIDE 18 MCG/INH HANDIHALER [5] IH SCH (12:14)
[2017-05-15] MEDS: FLUTICASONE/VILANTEROL 100-25 MCG/INH INHALER [14] IH SCH (12:14)
[2017-05-15] MEDS: HEPARIN SODIUM,PORCINE 5,000 UNITS/ML VIAL SQ SCH ×2 (12:15→21:00)
[2017-05-15] MEDS: LITHIUM CARBONATE 300 MG CAPSULE PO SCH ×2 (12:15→22:14)
[2017-05-15] MEDS: CloZAPine 25 MG TABLET PO SCH (12:15)
[2017-05-15] MEDS: QUEtiapine FUMARATE 25 MG TABLET PO SCH ×2 (12:15→17:52)
[2017-05-15] MEDS: BENZTROPINE MESYLATE 1 MG TABLET PO SCH ×2 (12:15→22:14)
[2017-05-15] MEDS: PANTOPRAZOLE SODIUM 40 MG DR TABLET PO SCH (12:15)
[2017-05-15 16:00] VITALS: BP 114/70
[2017-05-15 20:53] VITALS: BP 120/77
[2017-05-15] MEDS: QUEtiapine FUMARATE 300 MG TABLET PO SCH (22:14)
[2017-05-15] MEDS: DIVALPROEX SODIUM 500 MG ER TABLET PO SCH (22:14)
[2017-05-16] MEDS: MethylPREDNISolone SOD SUCC 125 MG/2 ML VIAL IVP SCH ×3 (00:27→12:15)
[2017-05-16 00:33] VITALS: BP 95/64
[2017-05-16 04:08] VITALS: BP 107/68
[2017-05-16] MEDS: LORazepam 2 MG TABLET PO PRN ×4 (04:40→23:26)
[2017-05-16] MEDS: LEVOTHYROXINE SODIUM 100 MCG TABLET PO SCH (07:12)
[2017-05-16] MEDS: IPRATROPIUM BROMIDE 0.5 MG/2.5 ML NEB SOLUTION NEB SCH ×4 (08:08→19:49)
[2017-05-16] MEDS: ALBUTEROL SULFATE 2.5 MG/0.5 ML NEB SOLUTION NEB SCH ×4 (08:08→19:49)
[2017-05-16 08:11] VITALS: BP 123/86
[2017-05-16] MEDS: QUEtiapine FUMARATE 25 MG TABLET PO SCH ×2 (08:53→16:20)
[2017-05-16] MEDS: BENZTROPINE MESYLATE 1 MG TABLET PO SCH ×2 (08:53→20:37)
[2017-05-16] MEDS: PANTOPRAZOLE SODIUM 40 MG DR TABLET PO SCH (08:53)
[2017-05-16] MEDS: HEPARIN SODIUM,PORCINE 5,000 UNITS/ML VIAL SQ SCH ×2 (08:53→20:38)
[2017-05-16] MEDS: CloZAPine 25 MG TABLET PO SCH (08:53)
[2017-05-16] MEDS: LITHIUM CARBONATE 300 MG CAPSULE PO SCH ×2 (08:53→20:37)
[2017-05-16] MEDS: TIOTROPIUM BROMIDE 18 MCG/INH HANDIHALER [5] IH SCH (08:53)
[2017-05-16] MEDS: FLUTICASONE/VILANTEROL 100-25 MCG/INH INHALER [14] IH SCH (08:53)
[2017-05-16] MEDS ORDERED: PredniSONE 20 MG TABLET PO ONE (09:00)
[2017-05-16 10:59] VITALS: BP 109/79
[2017-05-16 16:23] VITALS: BP 104/72
[2017-05-16] MEDS: PredniSONE 20 MG TABLET PO SCH (17:39)
[2017-05-16 19:50] VITALS: BP 127/77
[2017-05-16] MEDS: QUEtiapine FUMARATE 300 MG TABLET PO SCH (20:37)
[2017-05-16] MEDS: DIVALPROEX SODIUM 500 MG ER TABLET PO SCH (20:37)
[2017-05-16] MEDS ORDERED: MethylPREDNISolone SOD SUCC 125 MG/2 ML VIAL IVP SCH (21:00)
[2017-05-17 00:35] VITALS: BP 121/70
[2017-05-17 05:03] VITALS: BP 119/78
[2017-05-17 06:27] LABS: EOSINOPHILS % (AUTO) 0 % (1.0-6.0); HEMATOCRIT 43.1 % (41-53); HEMOGLOBIN 14.2 g/dL (13.5-17.5); LYMPHOCYTES # (AUTO) 0.4 K/uL (1.0-4.8); LYMPHOCYTES % (AUTO) 4.8 % (22.0-44.0); MEAN CORPUSCULAR VOLUME 85 fL (80-100); MONOCYTES # (AUTO) 0.5 K/uL (0.1-1.0); MONOCYTES % (AUTO) 5.1 % (2.0-9.0); NEUTROPHILS # (AUTO) 7.9 K/uL (1.8-7.7); PLATELET COUNT (AUTO) 125 K/uL (150-450); RED BLOOD CELL COUNT(AUTO) 5.08 MIL/uL (4.50-5.90); WHITE BLOOD COUNT (AUTO) 8.8 K/uL (4.5-11.0)
[2017-05-17] MEDS: LEVOTHYROXINE SODIUM 100 MCG TABLET PO SCH (06:32)
[2017-05-17 06:35] LABS: NEUTROPHILS % (AUTO) 90.1 % (40.0-70.0)
[2017-05-17 07:35] LABS: ANION GAP 5 mmol/L (8-16); CALCIUM, TOTAL 9.2 mg/dL (8.8-10.5); CARBON DIOXIDE 33 mmol/L (22-29); CHLORIDE 105 mmol/L (98-107); CREATININE 0.76 mg/dL (0.60-1.30); GLOMERULAR FILTR. RATE CALC > 60 mL/min (>60); SODIUM SERUM 143 mmol/L (136-145); UREA NITROGEN, BLOOD 16 mg/dL (7-18)
[2017-05-17 08:01] VITALS: BP 122/77
[2017-05-17] MEDS: PANTOPRAZOLE SODIUM 40 MG DR TABLET PO SCH (08:53)
[2017-05-17] MEDS: PredniSONE 20 MG TABLET PO SCH (08:53)
[2017-05-17] MEDS: CloZAPine 25 MG TABLET PO SCH (08:54)
[2017-05-17] MEDS: LITHIUM CARBONATE 300 MG CAPSULE PO SCH (08:54)
[2017-05-17] MEDS: TIOTROPIUM BROMIDE 18 MCG/INH HANDIHALER [5] IH SCH (08:54)
[2017-05-17] MEDS: HEPARIN SODIUM,PORCINE 5,000 UNITS/ML VIAL SQ SCH (08:54)
[2017-05-17] MEDS: QUEtiapine FUMARATE 25 MG TABLET PO SCH ×2 (08:55→17:39)
[2017-05-17] MEDS: FLUTICASONE/VILANTEROL 100-25 MCG/INH INHALER [14] IH SCH (08:56)
[2017-05-17] MEDS: IPRATROPIUM BROMIDE 0.5 MG/2.5 ML NEB SOLUTION NEB SCH ×3 (09:00→16:00)
[2017-05-17] MEDS: ALBUTEROL SULFATE 2.5 MG/0.5 ML NEB SOLUTION NEB SCH ×3 (09:00→16:00)
[2017-05-17] MEDS ORDERED: PredniSONE 10 MG TABLET PO ONE (09:00)
[2017-05-17] MEDS: BENZTROPINE MESYLATE 1 MG TABLET PO SCH (09:10)
[2017-05-17] MEDS ORDERED: QUET300T18 PO (09:13)
[2017-05-17] MEDS ORDERED: QUET25TA34 PO (09:13)
[2017-05-17 11:30] VITALS: BP 138/83
[2017-05-17 16:00] VITALS: BP 126/77
== END 2017-05-17 18:20 | disposition home or self-care (01) | DRG 189 ==
LOC: EMS 15:19 → 3EC 21:26 → 6N 05-13 00:53
DX: J96.20 Acute and chronic respiratory failure, unspecified whether with hypoxia or hypercapnia (principal); J84.112 Idiopathic pulmonary fibrosis; R45.851 Suicidal ideations; F25.0 Schizoaffective disorder, bipolar type; J44.1 Chronic obstructive pulmonary disease with (acute) exacerbation; D64.9 Anemia, unspecified; E03.9 Hypothyroidism, unspecified; E55.9 Vitamin D deficiency, unspecified; F17.200 Nicotine dependence, unspecified, uncomplicated; I10 Essential (primary) hypertension; K21.9 Gastro-esophageal reflux disease without esophagitis; Z91.19 Patient's noncompliance with other medical treatment and regimen; Z88.8 Allergy status to other drugs, medicaments and biological substances
CPT/HCPCS: 80159; 83735; 84100; 87081; 93005; 94640; 94644; 96372; 99285; G0480; J1644; J2060; J2930